=== PATIENT | female | born 1960 | race Caucasian/White ===

== ENCOUNTER 2019-12-28 08:42 | Emergency (ER) | payer BC, OTHER ==
[~2019-12-28] VITALS: Ht 165 cm; Wt 128.6 kg
[~2019-12-28 08:42] MED LIST: LOSA25TA5 PO; TRIAMTERENE
--- OUTSIDE RECORDS SUMMARY | 2019-12-28 08:48 | XMS REPORT ---
Author Author [employer] delinquency prevention social worker [employer] [facility] Infer [facility] [employer] Address [address] [address] Care Team Providers Care Professional Advisor Name Role Phone YASMINE FRANKLIN Sarah Unavailable MARIA ESTHER VERA Unavailable MARIA ESTHER VERA Unavailable MARIA ESTHER VERA Unavailable JOHN FORD Unavailable TIA OROZCO Unavailable Unavailable Unavailable Unavailable Unavailable Unavailable Allergies The data below is from unstructured sources Allergen Type Severity Reaction Status Last Updated No Known Drug Allergies Active 01/10/15 No Known Allergies Medications Medication Ingredient Drug Dose Dates Status Sig Sig Care Class(es) (Normalized) (Original) Provid er 200 actuat Albuterol beta2-Adren 2 07-10-20 Active take 2 P roAir HFA no albuterol Translation ergic puff(s 18 puff(s) by 108 (90 na me 0.09 s: [ ProAir Agonist ) inhalation Base) mg/actuat HFA 108 (90 every four MCG/ACT metered Base) hours as Inhalation dose MCG/ACT] needed every 4 hrs inhaler (1 2 puffs as source.) needed 4h Jun, 7 days Active predniSONE predniSONE no 20 mg 07-10-20 Active no Predn iSONE no 20 mg oral Translation information 18 information 20 mg O rally name tablet (1 s: [ Once a day 1 source.) PredniSONE tablet 24h 20 mg] Jun, 5 days Active Problems Problem Normalized Date Last Normalized Normalized Provider Fa cility Classification Problem(s) Recorded Problem Problem Sta tus Duration Other Body mass Chronic Active [facility] nutritional; index (BMI) [facility] [address] [facility] endocrine; and 40.0-44.9, of [place] metabolic adult [place] ([address]) disorders (1 Translations: source.) [ - BMI 40.0-44.9, adult Z68.41] Procedures Procedure Normalized Procedure Procedure Result Performer Facility Date 07-10-2018 Methylprednisolone no information no name [facility] injection [facility] ([id number]) 07-10-2018 Therapeutic no information no name [facility] prophylactic/dx [facility] subq/im [place] ([address]) Immunizations Normalized Immunization Date Notes Care Provider Facili ty Immunization SOLUMEDROL (UP TO 07-10-2018 no information JOHN FORD [facility] 125 MG) [address] [facility] (45729) Results Test Name Value Interpretation Reference Range Date Time Fa cility (Normalized) (Normalized) (Medline Reference) not yet categorized on 2019-09-27 Control Negative (no code) [facility] (18460) Exp date (no code) [facility] (22451) Lot # [id number] (no code) [facility] (99766) laboratory on 2018-09-22 Albumin 4.3 g/dL (N) 3.4 - 5.4 g/dL [facility] [Mass/Vol] [facility] (49646) Albumin/Globulin 1.4 {ratio} (N) 1 - 2.5 {ratio} [facility] [Mass ratio] [facility] (68906) ALP [Catalytic 80 U/L (N) 44 - 147 U/L [facility] activity/Vol] [facility] (21616) ALT [Catalytic 18 U/L (N) 4 - 40 U/L [facility] activity/Vol] [facility] (21621) AST [Catalytic 18 U/L (N) 10 - 34 U/L [facility] activity/Vol] [facility] (17788) Bilirubin 0.5 mg/dL (N) 0.1 - 1.2 mg/dL [facility] [Mass/Vol] [facility] (87546) Calcium 9.5 mg/dL (N) 8.5 - 10.2 mg/dL [facility] [Mass/Vol] [facility] (65688) Chloride 103 mmol/L (N) 95 - 106 mmol/L [facility] [Moles/Vol] [facility] (71759) CO2 [Moles/Vol] 29 mmol/L (N) 23 - 29 mmol/L [facility] (02977) Creatinine 0.80 mg/dL (N) [facility] h [Mass/Vol] [facility] (72752) GFR/1.73 sq M 94 (N) 90 - 120 [facility] predicted among mL/min/{1.73_m2} mL/min/{1.73_m2} [facility] f [facility] blacks MDRD [facility] (S/P/Bld) [Vol (16628) rate/Area] GFR/1.73 sq 81 (N) 90 - 120 [facility] th M.predicted MDRD mL/min/{1.73_m2} mL/min/{1.73_m2} [facility] (S/P/Bld) [Vol [facility] rate/Area] (41747) Globulin (S) 3.0 g/dL (N) 2 - 3.5 g/dL [facility] ealt [Mass/Vol] [facility] (70853) Glucose 86 mg/dL (N) 60 - 125 mg/dL [facility] [Mass/Vol] [facility] (83643) Potassium 3.8 mmol/L (N) 3.7 - 5.2 mmol/L [facility] [Moles/Vol] [facility] (05805) Protein 7.3 g/dL (N) 6.4 - 8.3 g/dL [facility] [Mass/Vol] [facility] (55360) Sodium 141 mmol/L (N) 135 - 145 mmol/L [facility] [Moles/Vol] [facility] (70362) Urea nitrogen 26 mg/dL (H) 7 - 20 mg/dL [facility] [Mass/Vol] [facility] (47447) Urea 33 mg/mg (H) 6 - 22 mg/mg [facility] nitrogen/Creatin [facility] ine [Mass ratio] [facility] (88477) other on 2016-11-12 Albumin/Globulin 1.5 {ratio} (no code) 1 - 2.5 {ratio} 7 Not Available [Mass ratio] 09: (27133) Erythrocyte 14.8 % (no code) 11.6 - 14.6 % 11-12-2016 Not Av ailable distribution 08:46 (67375) width (RBC) [Ratio] Globulin (S) 3.0 g/dL (no code) 2 - 3.5 g/dL 11-12-2016 Not Av ailable [Mass/Vol] 09: () Immature 0.0 10*3/uL (no code) 0 - 0.2 10*3/uL 11-12-2016 Not Available granulocytes 08: () (Bld) [#/Vol] Immature 0 % (no code) 0 - 0.5 % 11-12-2016 Not Availabl e granulocytes/100 08: () WBC (Bld) MCHC (RBC) 31.9 g/dL (no code) 32 - 36 g/dL 11-12-2016 Not Avai lable [Mass/Vol] 08: (55014) metabolic panel on 2016-11-12 Albumin 4.5 g/dL (no code) 3.4 - 5.4 g/dL 11-12-2016 Not Kristin ilable [Mass/Vol] 09: (14889) ALP [Catalytic 97 U/L (no code) 44 - 147 U/L 11-12-2016 Not Available activity/Vol] 09: (34823) ALT [Catalytic 23 U/L (no code) 4 - 40 U/L 11-12-2016 Not Av ailable activity/Vol] 09: (45283) AST [Catalytic 21 U/L (no code) 10 - 34 U/L 11-12-2016 Not A vailable activity/Vol] 09: (04891) Bilirubin 0.4 mg/dL (no code) 0.1 - 1.2 mg/dL 11-12-2016 Not Av ailable [Mass/Vol] 09: (34301) Calcium 9.8 mg/dL (no code) 8.5 - 10.2 mg/dL 11-12-2016 Not A vailable [Mass/Vol] 09: (76158) Chloride 100 mmol/L (no code) 95 - 106 mmol/L 11-12-2016 Not A vailable [Moles/Vol] 09: (09175) CO2 [Moles/Vol] 27 mmol/L (no code) 23 - 29 mmol/L 11-12-2016 N ot Available : (62596) Creatinine 0.71 mg/dL (no code) 11-12-2016 Not Available [Mass/Vol] 09: (24141) GFR/1.73 sq M 110 (no code) 90 - 120 11-12-2016 Not Avai lable predicted among mL/min/{1.73_m2} mL/min/{1.73_m2} 09: (17816) blacks MDRD (S/P/Bld) [Vol rate/Area] GFR/1.73 sq M 96 (no code) 90 - 120 11-12-2016 Not Avai lable predicted among mL/min/{1.73_m2} mL/min/{1.73_m2} 09: (25754) non-blacks MDRD (S/P/Bld) [Vol rate/Area] Glucose 84 mg/dL (no code) 60 - 125 mg/dL 11-12-2016 Not Kristin ilable [Mass/Vol] 09: (99107) HbA1c (Bld) 5.9 % (H) 0 - 5.7 % 11-12-2016 Not Availa ble [Mass fraction] 11: (02503) Potassium 4.4 mmol/L (no code) 3.7 - 5.2 mmol/L 11-12-2016 Not Available [Moles/Vol] 09: (11347) Protein 7.5 g/dL (no code) 6.4 - 8.3 g/dL 11-12-2016 Not Kristin ilable [Mass/Vol] 09: (90615) Sodium 143 mmol/L (no code) 135 - 145 mmol/L 11-12-2016 Not Available [Moles/Vol] 09: (89667) Urea nitrogen 14 mg/dL (no code) 7 - 20 mg/dL 11-12-2016 Not A vailable [Mass/Vol] 09: (22706) Urea 20 mg/mg (no code) 6 - 22 mg/mg 11-12-2016 Not Avail able nitrogen/Creatin 09: (33798) ine [Mass ratio] hematology on 2016-11-12 Basophils (Bld) 0.0 10*3/uL (no code) 0 - 0.3 10*3/uL 11-12-2016 Not Available [#/Vol] 08:46-0400 (33712) Basophils/100 1 % (no code) 0.5 - 1 % 11-12-2016 Not Avai lable WBC (Bld) 08:460400 (22470) Eosinophils 0.3 10*3/uL (no code) 0.05 - 0.5 11-12-2016 Not Kristin ilable (Bld) [#/Vol] 10*3/uL 08:460400 (97811) Eosinophils/100 6 % (no code) 1 - 4 % 11-12-2016 Not Av ailable WBC (Bld) 08:460400 (95302) Hematocrit (Bld) 44.5 % (no code) 36.1 - 50.3 % 11-12-2016 N ot Available [Volume 08:460400 (36751) fraction] Hemoglobin (Bld) 14.2 g/dL (no code) 12.1 - 17.2 g/dL 11-12-2016 Not Available [Mass/Vol] 08:460400 (58274) Lymphocytes 1.3 10*3/uL (no code) 0.9 - 2.9 11-12-2016 Not Avai lable (Bld) [#/Vol] 10*3/uL 08:46-0400 (69536) Lymphocytes/100 25 % (no code) 20 - 40 % 11-12-2016 Not Av ailable WBC (Bld) 08:460400 (44525) MCH (RBC) 29.8 pg (no code) 27 - 31 pg 11-12-2016 Not Availab le [Entitic mass] 08:460400 (28271) MCV (RBC) 93 fL (no code) 80 - 100 fL 11-12-2016 Not Availa ble [Entitic vol] 08:46-0400 (32866) Monocytes (Bld) 0.5 10*3/uL (no code) 0.3 - 0.9 11-12-2016 Not Available [#/Vol] 10*3/uL 08:46-0400 (89303) Monocytes/100 11 % (no code) 2 - 8 % 11-12-2016 Not Avai lable WBC (Bld) 08:46-0400 (93954) Neutrophils 2.9 10*3/uL (no code) 1.7 - 7 10*3/uL 11-12-2016 No t Available (Bld) [#/Vol] 08:46-0400 (46397) Neutrophils/100 57 % (no code) 40 - 60 % 11-12-2016 Not Av ailable WBC (Bld) 08:46-0400 (34722) Platelets (Bld) 339 10*3/uL (no code) 150 - 450 11-12-2016 Not Available [#/Vol] 10*3/uL 08:46-0400 (02583) RBC (Bld) 4.77 10*6/uL (no code) 4.2 - 6.1 11-12-2016 Not Avail able [#/Vol] 10*6/uL 08:46-0400 (08028) WBC (Bld) 5.0 10*3/uL (no code) 3.5 - 10.5 11-12-2016 Not Avail able [#/Vol] 10*3/uL 08:46-0400 (99475) Vital Signs Vital Sign Value Interpretation Reference Date Time Care Prov ider Facility (Normalized) (Normalized) Range BMI (Body Mass 44.43 kg/m2 (no code) 15 - 25 kg/m2 [facility] 09:00-[address] ([address]) Body 98.6 [degF] (no code) 97.8 - 99.0 07-10-2018 [facility] Temperature [degF] 09:00-[address] ([address]) Height 165.1 cm (no code) cm 07-10-2018 [facility] it 09:00-[address] ([address]) Pulse Oximetry 96 % (no code) 95 - 100 % 07-10-2018 [facility] 09:00-[address] ([address]) Weight 121.11 kg (no code) kg 07-10-2018 [facility]on 09:00-[address] ([address]) Interventions No Information Plan of Treatment Normalized Care Care Detail Care Activity Date Care Provider F acility Activity (ESTAB) Establish [facility] 08-12-[address] ([address]) Goals No Information Social History No Information Functional Status The data below is from unstructured sourcesNo functional status results. Mental Status No Information Encounters Encounter Normalized Encounter Encounter Diagnosis Care Provi fabiana Organization Date Type 07-10-2018 (WALK-IN) [facility]In [facility] Body mass index (BMI) [facility] 40.0-44.9, adult phone) CARE (no phone) 12-18-2017 Patient encounter no information no name no or ganization name 11-23-2017 Patient encounter no information no name no or ganization name 09-27-2019 Patient encounter no information (no phone) [facility] (no phone) 06-09-2019 Patient encounter no information no name no or ganization name procedure 03-25-2019 Patient encounter no information no name no or ganization name procedure 09-24-2018 Patient encounter no information no name no or ganization name procedure 09-22-2018 Patient encounter no information no name no or ganization name procedure 09-22-2018 Patient encounter no information no name no or ganization name procedure 08-12-2018 Patient encounter no information no name no or ganization name procedure 07-19-2018 Patient encounter no information no name no or ganization name procedure 07-10-2018 Patient encounter no information no name no or ganization name procedure 01-10-2015 Patient encounter no information no name no or ganization name procedure Medical Equipment No Information Payers No Information Advance Directives Directive Response Recor ded Date/Time Advance Directives No 12:20pm Health Care Power of Director Of Nuclear Medicine No 01/10/15 12:20pm Organ Donor No 01/10/15 12:20pm Resuscitation Status Full Code 01/10/15 12:20pm Discharge Instructions No hospital discharge instructions. Additional Source Comments This clinical document has been generated using [employer] software that has been certified by the Office of the National Coordinator for Health Information Technology (ONC 15.99.04.3023.Diam.31.00.0.514385) and the National Committee for [employer] (NCQA, as an eMeasure certified technology). FOR RECORDS PERTAINING TO PATIENTS WHO ARE OR HAVE BEEN ENROLLED IN A CHEMICAL D EPENDENCY/SUBSTANCE ABUSE PROGRAM, SOME INFORMATION MAY BE OMITTED. This clinica l summary was aggregated from multiple sources. Caution should be exercised in using it in the provision of clinical care. This summary normalizes information from multiple sources, and as a consequence, information in this document may ma terially change the coding, format and clinical context of patient data. In belkis tion, data may be omitted in some cases. CLINICAL DECISIONS SHOULD BE BASED ON T HE PRIMARY CLINICAL RECORDS. [employer] provides no warranty or guara ntee of the accuracy or completeness of information in this document.The followi ng information is based on time limited clinical information UNRECOGNIZED CONTENT PROVIDED BELOW FOR UNRECOGNIZED SECTION MEDICAL (GENERAL) HISTORY Type Description Date Medical History asthma Medical History hypertension Surgical History dilatation and curettage 2006 Surgical History colonoscopy 2016 Hospitalization History childbirth only UNRECOGNIZED CONTENT PROVIDED BELOW FOR UNRECOGNIZED SECTION REASON FOR VISIT Cough, fatigue started 3-4 weeks ago Kit
--- OUTSIDE RECORDS SUMMARY | 2019-12-28 08:48 | XMS REPORT ---
Author Author CHUYMyrna Organization [facility] Address [address] [place] [address] Care Team Providers Care Fiberline Supervisor Name Role Phone MARIA ESTHER VERA Unavailable PROBLEMS Type Condition ICD9-CM Code [id number] Code Onset Dates Condition S tatus SNOMED Code Problem Essential hypertension I10 Active 52407786 Problem Morbid obesity due to excess calories E66.01 Active 190574310 Problem Mild intermittent asthma without complication J45. 20 Active 067536893 Problem Hypercholesteremia E78.00 Active 1 6361379 ALLERGIES No Information ENCOUNTERS Encounter Location Date Diagnosis [place] [address] [facility] [id number] [address] [place] [phone] Mar, [facility] [address] [facility] [id number] [address] [place] [phone] November, [place] [address] [facility] [id number] [address] [place] [address] Oct, Essential hypertension I10 ; Mild intermittent asthma without complication J45.20 and Morbid obesity due to excess calories E66.01 [place] [address] [facility] [id number] [address] [place] [phone] Apr, Essential hypertension I10 ; Mild intermittent asthma without complication J45.20 and Morbid obesity due to excess calories E66.01 [facility] [address] [facility] [id number] [address] [place] [phone] Feb, Essential hypertension I10 ; Mild intermittent asthma without complication J45.20 and Morbid obesity due to excess calories E66.01 [place] [address] [id number] [address] [place] [address] Oct, Mild intermittent asthma wit hout complication J45.20 ; Essential hypertension I10 ; Morbid obesity due to excess calories E66.01 ; Family history of heart disease Z82.49 and Fluttering sensation of heart R00.2 [facility] [address] [facility] [id number] [address] [place] [address] 14 Oct, 2016 Routine adult health mainten ance Z00.00 ; Mild intermittent asthma without complication J45.20 ; Essential hypertension I10 ; Morbid obesity due to excess calories E66.01 ; Family history of heart disease Z82.49 and Fluttering sensation of heart R00.2 [facility] [address] [facility] [id number] [address] [place] [phone] Oct, IMMUNIZATIONS No Known Immunizations SOCIAL HISTORY Never Assessed REASON FOR VISIT Eye Exam PLAN OF CARE VITAL SIGNS MEDICATIONS Unknown Medications RESULTS No Results PROCEDURES No Known procedures INSTRUCTIONS MEDICATIONS ADMINISTERED No Known Medications MEDICAL (GENERAL) HISTORY Type Description Date Medical History asthma Medical History hypertension Surgical History dilatation and curettage 2006 Surgical History colonoscopy 2016 Hospitalization History childbirth only
--- OUTSIDE RECORDS SUMMARY | 2019-12-28 08:48 | XMS REPORT ---
Author Author CHUYMyrna Organization [facility] Address [address] [place] [address] Care Team Providers Care Geophysical Prospector Name Role Phone MARIA ESTHER VERA Unavailable PROBLEMS Type Condition ICD9-CM Code [id number] Code Onset Dates Condition S tatus SNOMED Code Problem Essential hypertension I10 Active 92697634 Problem Morbid obesity due to excess calories E66.01 Active 041677894 Problem Mild intermittent asthma without complication J45. 20 Active 684743710 Problem Hypercholesteremia E78.00 Active 1 1180340 ALLERGIES No Known Allergies ENCOUNTERS Encounter Location Date Diagnosis [place] [address] [address] November, [place] [address] [address] Oct, Essential hypertension I10 ; Mild intermittent asthma without complication J45.20 and Morbid obesity due to excess calories E66.01 [place] [address] [address] [place] [id number] [place] [phone] Apr, Essential hypertension I10 ; Mild intermittent asthma without complication J45.20 and Morbid obesity due to excess calories E66.01 [place] [address] [address] [place] [id number] [place] [address] Feb, Essential hypertension I10 ; Mild intermittent asthma without complication J45.20 and Morbid obesity due to excess calories E66.01 [place] [address] [address] [place] [id number] [place] [phone] Oct, Mild intermittent asthma wit hout complication J45.20 ; Essential hypertension I10 ; Morbid obesity due to excess calories E66.01 ; Family history of heart disease Z82.49 and Fluttering sensation of heart R00.2 [place] [address] [facility] [id number] [place] [address] 14 Oct, 2016 Routine adult health mainten ance Z00.00 ; Mild intermittent asthma without complication J45.20 ; Essential hypertension I10 ; Morbid obesity due to excess calories E66.01 ; Family history of heart disease Z82.49 and Fluttering sensation of heart R00.2 [facility] [address] [facility] [id number] [place] [address] 06 Oct, 2016 IMMUNIZATIONS No Known Immunizations SOCIAL HISTORY Never Assessed REASON FOR VISIT Weight management/bP---GONZALO Douglass PLAN OF CARE Activity Details Follow Up 3 Months Reason:CHM/HTN VITAL SIGNS Height 5'5" in 2017-05-07 Weight 249.7 lbs 2017-05-07 Temperature 97.7 degrees Fahrenheit 2017-05-07 Heart Rate 80 bpm 2017-05-07 Respiratory Rate 20 2017-05-07 BMI 41.55 kg/m2 2017-05-07 Blood pressure systolic 147 mmHg 2017-05-07 Blood pressure diastolic 96 mmHg 2017-05-07 MEDICATIONS Medication Instructions Dosage Frequency Start Date End Date Duration S tatus Montelukast Sodium 10 mg Orally Once a day 1 tablet in the evening 24h 90 days Active Albuterol Sulfate HFA 108 (90 Base) MCG/ACT Inhalation every 4 hrs 2 puffs as needed 4h Active Multivitamin Active Losartan Potassium 25 MG Orally Once a day 1 tablet 24h 90 days Active Triamterene-HCTZ 37.5-25 MG by oral route Once a day 1 tablet 24h 6 Months Active RESULTS No Results PROCEDURES No Known procedures INSTRUCTIONS MEDICATIONS ADMINISTERED No Known Medications MEDICAL (GENERAL) HISTORY Type Description Date Medical History asthma Medical History hypertension Surgical History dilatation and curettage 2006 Surgical History colonoscopy 2016 Hospitalization History childbirth only
--- OUTSIDE RECORDS SUMMARY | 2019-12-28 08:48 | XMS REPORT ---
Author Author CHUYMyrna MARIA ESTHER Organization [facility] Address [address] [place] [address] Care Team Providers Care Dietary Clerk Name Role Phone MARIA ESTHER VERA Unavailable PROBLEMS Type Condition ICD9-CM Code VUU42-SM Code Onset Dates Condition S tatus SNOMED Code Problem Essential hypertension I10 Active 15896466 Problem Morbid obesity due to excess calories E66.01 Active 990996025 Problem Mild intermittent asthma without complication J45. 20 Active 364677819 Problem Hypercholesteremia E78.00 Active 1 5285698 ALLERGIES No Known Allergies ENCOUNTERS Encounter Location Date Diagnosis [place] [address] [address] November, [place] [address] [address] Oct, Essential hypertension I10 ; Mild intermittent asthma without complication J45.20 and Morbid obesity due to excess calories E66.01 [place] [address] [address] [place] [id number] [place] [address] Apr, Essential hypertension I10 ; Mild intermittent asthma without complication J45.20 and Morbid obesity due to excess calories E66.01 [place] [address] [place] [id number] [place] [address] Feb, Essential hypertension I10 ; Mild intermittent asthma without complication J45.20 and Morbid obesity due to excess calories E66.01 [place] [address] [place] [id number] [place] [address] Oct, Mild intermittent asthma wit hout complication J45.20 ; Essential hypertension I10 ; Morbid obesity due to excess calories E66.01 ; Family history of heart disease Z82.49 and Fluttering sensation of heart R00.2 [place] [address] [facility] [id number] [place] [address] 14 Oct, 2016 Routine adult health mainten ance Z00.00 ; Mild intermittent asthma without complication J45.20 ; Essential hypertension I10 ; Morbid obesity due to excess calories E66.01 ; Family history of heart disease Z82.49 and Fluttering sensation of heart R00.2 [facility] [address] [facility] [id number] [place] [address] 06 Oct, 2016 IMMUNIZATIONS No Known Immunizations SOCIAL HISTORY Never Assessed REASON FOR VISIT HTN--tcuppettRN PLAN OF CARE Activity Details Follow Up 3 Months Reason:CHM/HTN VITAL SIGNS Height 5'5" in 2017-11-23 Weight 254.2 lbs 2017-11-23 Temperature 97.8 degrees Fahrenheit 2017-11-23 Heart Rate 84 bpm 2017-11-23 Respiratory Rate 20 2017-11-23 BMI 42.30 kg/m2 2017-11-23 Blood pressure systolic 156 mmHg 2017-11-23 Blood pressure diastolic 100 mmHg 2017-11-23 MEDICATIONS Medication Instructions Dosage Frequency Start Date End Date Duration S tatus Albuterol Sulfate HFA 108 (90 Base) MCG/ACT Inhalation every 4 hrs 2 puffs as needed 4h Active Losartan Potassium 25 MG Orally Once a day 1 tablet 24h 90 days Active Multivitamin Active Triamterene-HCTZ 37.5-25 MG by oral route Once a day 1 tablet 24h 90 days Active Montelukast Sodium 10 mg Orally Once a day TAKE (1) TABLET BY MOUTH ONCE EVERY EVENING 24h 90 days Active RESULTS No Results PROCEDURES Procedure Date Ordered Result Body Site COMPLETE CBC W/AUTO DIFF WBC November 23, 2017 ASSAY THYROID STIM HORMONE November 23, 2017 COMPREHEN METABOLIC PANEL November 23, 2017 LIPID PANEL November 23, 2017 INSTRUCTIONS MEDICATIONS ADMINISTERED No Known Medications MEDICAL (GENERAL) HISTORY Type Description Date Medical History asthma Medical History hypertension Surgical History dilatation and curettage 2006 Surgical History colonoscopy 2016 Hospitalization History childbirth only
--- OUTSIDE RECORDS SUMMARY | 2019-12-28 08:48 | XMS REPORT ---
Author Author LILIANA Myrna JOHN Organization [facility] Address [address] [place] [address] Care Team Providers Care Digital Music Instructor Name Role Phone JOHN FORD Unavailable PROBLEMS Type Condition ICD9-CM Code SPH04-NR Code Onset Dates Condition S tatus SNOMED Code Problem Moderate asthma with acute exacerbation, unspecified whether persistent J45.901 Active 464138980 Problem Essential hypertension I10 Active 39149552 Problem Hypercholesteremia E78.00 Active 1 5715153 Problem Morbid obesity due to excess calories E66.01 Active 526766445 Problem Mild intermittent asthma without complication J45. 20 Active [id number] ALLERGIES No Known Allergies ENCOUNTERS Encounter Location Date Diagnosis [place] [id number] [place] [id number] [place] [phone] Jul, [facility] [address] [phone] Jun, BMI 40.0-44.9, adult Z68.41 ; Moderate asthma with acute exacerbation, unspecified whether persistent J45.901 and Essential hypertension I10 [place] [address] [place] [id number] [place] [phone] November, [place] [address] [phone] Oct, Essential hypertension I10 ; Mild intermittent asthma without complication J45.20 and Morbid obesity due to excess calories E66.01 [place] [address] [phone] Apr, Essential hypertension I10 ; Mild intermittent asthma without complication J45.20 and Morbid obesity due to excess calories E66.01 [place] [address] [place] [id number] [place] [phone] Feb, Essential hypertension I10 ; Mild intermittent asthma without complication J45.20 and Morbid obesity due to excess calories E66.01 [place] [address] [facility] [id number] [address] [place] [phone] 18 Oct, 2016 Mild intermittent asthma wit hout complication J45.20 ; Essential hypertension I10 ; Morbid obesity due to excess calories E66.01 ; Family history of heart disease Z82.49 and Fluttering sensation of heart R00.2 [place] [address] [facility] [id number] [address] [place] [phone] 14 Oct, 2016 Routine adult health mainten ance Z00.00 ; Mild intermittent asthma without complication J45.20 ; Essential hypertension I10 ; Morbid obesity due to excess calories E66.01 ; Family history of heart disease Z82.49 and Fluttering sensation of heart R00.[address] [id number] [address] [place] [phone] 06 Oct, 2016 IMMUNIZATIONS Vaccine Route Administration Date Status SOLUMEDROL (UP TO 125 MG) IM Intramuscular Jul 10, 2018 Admin istered SOCIAL HISTORY Never Assessed REASON FOR VISIT Cough, fatigue started 3-4 weeks ago JStrasserRN PLAN OF CARE Activity Details Follow Up as needed or reg fu with danita zarco Reason: VITAL SIGNS Height 65 in 2018-07-10 Weight 267.0 lbs 2018-07-10 Temperature 98.6 degrees Fahrenheit 2018-07-10 Heart Rate 90 bpm 2018-07-10 Respiratory Rate 20 2018-07-10 Oximetry 96 % 2018-07-10 BMI 44.43 kg/m2 2018-07-10 Blood pressure systolic 140 mmHg 2018-07-10 Blood pressure diastolic 100 mmHg 2018-07-10 MEDICATIONS Medication Instructions Dosage Frequency Start Date End Date Duration S tatus Albuterol Sulfate HFA 108 (90 Base) MCG/ACT Inhalation every 4 hrs 2 puffs as needed 4h Active Multivitamin Active Montelukast Sodium 10 mg Orally Once a day TAKE (1) TABLET BY MOUTH ONCE EVERY EVENING 24h 90 days Active Losartan Potassium 25 MG Orally Once a day 1 tablet 24h 90 days Active Triamterene-HCTZ 37.5-25 MG by oral route Once a day 1 tablet 24h 32 days Active ProAir HFA 108 (90 Base) MCG/ACT Inhalation every 4 hrs 2 puffs as needed 4h Jun, 7 days Active PredniSONE 20 mg Orally Once a day 1 tablet 24h Jun, 5 days Active RESULTS No Results PROCEDURES Procedure Date Ordered Result Body Site SOLUMEDROL (UP TO 125 MG) Jul 10, 2018 THER/PROPH/DIAG INJ, SC/IM Jul 10, 2018 INSTRUCTIONS MEDICATIONS ADMINISTERED No Known Medications MEDICAL (GENERAL) HISTORY Type Description Date Medical History asthma Medical History hypertension Surgical History dilatation and curettage 2006 Surgical History colonoscopy 2016 Hospitalization History childbirth only
--- OUTSIDE RECORDS SUMMARY | 2019-12-28 08:48 | XMS REPORT | Continuity of Care Document ---
Author Organization Unknown Address Unknown Phone Unavailable Allergies Active Description Code Type Severity Reaction Onset Reported/Identified Relationship to Patient Clinical Status Yes No Known Drug Allergies [id number] Drug Allergy Unknown N/A 01/10/2015 Medications There is no data. Problems Date Dx Coded Attending Type Code Diagnosis Diagnosed By 07/26/2014 RIGOBERTO BIRD, YASMINE Smith Ot 246.2 12/20/2014 RIGOBERTO BIRD, YASMINE Smith Ot 246.2 01/10/2015 CÉSAR BIRD, LEXUS Menezes Ot 401.9 01/10/2015 CÉSAR BIRD, LEXUS Menezes Ot 493.90 01/10/2015 CÉSAR BIRD, LEXUS Menezes Ot V76.51 01/29/2015 RIGOBERTO BIRD, YASMINE Smith Ot V76.12 Procedures There is no data. Results Test Result Range CBC With Differential/Platelet - 7 08:25 WBC 5.0 x10E3/uL 3.4-10.8 RBC 4.77 x10E6/uL 3.77-5.28 Hemoglobin 14.2 g/dL 11.1-15.9 Hematocrit 44.5 % 34.0-46.6 MCV 93 fL 79-97 MCH 29.8 pg 26.6-33.0 MCHC 31.9 g/dL 31.5-35.7 RDW 14.8 % 12.3-15.4 Platelets 339 x10E3/uL 150-379 Neutrophils 57 % Lymphs 25 % Monocytes 11 % Eos 6 % Basos 1 % Neutrophils (Absolute) 2.9 x10E3/uL 1.4- 7.0 Lymphs (Absolute) 1.3 x10E3/uL 0.7-3.1 Monocytes(Absolute) 0.5 x10E3/uL 0.1-0.9 Eos (Absolute) 0.3 x10E3/uL 0.0-0.4 Baso (Absolute) 0.0 x10E3/uL 0.0-0.2 Immature Granulocytes 0 % Immature Grans (Abs) 0.0 x10E3/uL 0.0-0. 1 Comp. Metabolic Panel (14) - 11/11/16 08 :25 Glucose, Serum 84 mg/dL 65-99 BUN 14 mg/dL 6-24 Creatinine, Serum 0.71 mg/dL 0.57-1.00 eGFR If NonAfricn Am 96 mL/min/1.73 >59 eGFR If Africn Am 110 mL/min/1.73 >5 9 BUN/Creatinine Ratio 20 9-23 Sodium, Serum 143 mmol/L 134-144 Potassium, Serum 4.4 mmol/L 3.5-5.2 Chloride, Serum 100 mmol/L 96-106 Carbon Dioxide, Total 27 mmol/L 18-29 Calcium, Serum 9.8 mg/dL 8.7-10.2 Protein, Total, Serum 7.5 g/dL 6.0-8.5 Albumin, Serum 4.5 g/dL 3.5-5.5 Globulin, Total 3.0 g/dL 1.5-4.5 A/G Ratio 1.5 1.2-2.2 Bilirubin, Total 0.4 mg/dL 0.0-1.2 Alkaline Phosphatase, S 97 IU/L 39-117 AST (SGOT) 21 IU/L 0-40 ALT (SGPT) 23 IU/L 0-32 Hemoglobin A1c - 11/11/16 08:25 Hemoglobin A1c 5.9 % 4.8-5.6 CMP - 09/22/18 11:43 GLUCOSE 86 mg/dL 65-99 UREA NITROGEN (BUN) 26 mg/dL 7-25 CREATININE 0.80 mg/dL 0.50-1.05 eGFR NON-AFR. EGYPTIAN 81 mL/min/1.73m2 > OR = 60 eGFR 94 mL/min/1.73m2 > OR = 60 BUN/CREATININE RATIO 33 (calc) 6-22 SODIUM 141 mmol/L 135-146 POTASSIUM 3.8 mmol/L 3.5-5.3 CHLORIDE 103 mmol/L 98-110 CARBON DIOXIDE 29 mmol/L 20-32 CALCIUM 9.5 mg/dL 8.6-10.4 PROTEIN, TOTAL 7.3 g/dL 6.1-8.1 ALBUMIN 4.3 g/dL 3.6-5.1 GLOBULIN 3.0 g/dL (calc) 1.9-3.7 ALBUMIN/GLOBULIN RATIO 1.4 (calc) 1.0-2. 5 BILIRUBIN, TOTAL 0.5 mg/dL 0.2-1.2 ALKALINE PHOSPHATASE 80 U/L 33-130 AST 18 U/L 10-35 ALT 18 U/L 6-29 Encounters ACCT No. Visit Date/Time Discharge Status Pt. Type Provider Facility Loc./Unit Complaint [id number] 06/09/2019 13:40:00 06/09/2019 23:59:5 9 CLS Outpatient TIA OROZCO [facility] [id number] 09/22/2018 10:40:00 Document Registration [id number] 01/10/2015 12:16:00 015 15:35:00 DIS Outpatient LEXUS LINDSEY MD Via [facility] [id number] 01/04/2015 06:18:00 015 23:59:59 CLS Outpatient LEXUS LINDSEY MD Via [facility] PREOP [id number] 12/21/2014 15:18:00 015 23:59:59 CLS Outpatient YASMINE FRANKLIN MD Via [facility] RAD [id number] 06/29/2014 15:11:00 014 23:59:59 CLS Outpatient YASMINE FRANKLIN MD Via [facility] RAD [id number] 11/12/2016 11:10:00 Document Registration
[2019-12-28] MEDS ORDERED: TRIA1TAB3 (09:12)
[2019-12-28] MEDS ORDERED: LOSA50TA63 (09:12)
[2019-12-28] MEDS ORDERED: MONT10TA26 (09:12)
[2019-12-28 09:16] LABS: BASOPHILS % (AUTO) 0 % (0-10); BILIRUBIN,URINE NEGATIVE (NEGATIVE); CLARITY,URINE CLEAR; COLOR,URINE YELLOW; EOSINOPHILS # (AUTO) 0.3 10^3/uL (0.0-0.3); EOSINOPHILS % (AUTO) 4 % (0-10); GLUCOSE, URINE (UA) NEGATIVE (NEGATIVE); HEMATOCRIT 38 % (35-52); HEMOGLOBIN 12.3 G/DL (11.5-16.0); KETONES,URINE NEGATIVE (NEGATIVE); LEUKOCYTE ESTERASE ,URINE 3+ (NEGATIVE); LYMPHOCYTES # (AUTO) 1.2 X 10^3 (1.0-4.0); LYMPHOCYTES % (AUTO) 16 % (12-44); MEAN CORPUSCULAR HEMOGLOBIN 31 PG (25-34); MEAN CORPUSCULAR HGB CONC 33 G/DL (32-36); MEAN CORPUSCULAR VOLUME 94 FL (80-99); MONOCYTES # (AUTO) 0.6 X 10^3 (0.0-1.0); MONOCYTES % (AUTO) 9 % (0-12); NEUTROPHILS # (AUTO) 5.2 X 10^3 (1.8-7.8); NEUTROPHILS % (AUTO) 70 % (42-75); NITRITE,URINE NEGATIVE (NEGATIVE); PH,URINE 6.5 (5-9); PLATELET COUNT 380 10^3/uL (130-400); PROTEIN,URINE NEGATIVE (NEGATIVE); RED CELL DISTRIBUTION WIDTH 14.1 % (10.0-14.5); WHITE BLOOD COUNT 7.3 10^3/uL (4.3-11.0)
[2019-12-28 09:28] LABS: ALBUMIN 4.2 GM/DL (3.2-4.5); CHLORIDE 103 MMOL/L (98-107); POTASSIUM 3.9 MMOL/L (3.6-5.0); SODIUM 140 MMOL/L (135-145)
[2019-12-28 09:29] LABS: BACTERIA,URINE FEW /HPF; CALCIUM 9.5 MG/DL (8.5-10.1)
[2019-12-28 09:30] LABS: GLUCOSE 101 MG/DL (70-105); TOTAL PROTEIN 7.7 GM/DL (6.4-8.2)
[2019-12-28 09:31] LABS: CARBON DIOXIDE 26 MMOL/L (21-32)
[2019-12-28 09:32] LABS: BILIRUBIN,TOTAL 0.4 MG/DL (0.1-1.0)
[2019-12-28 09:34] LABS: ALKALINE PHOSPHATASE 92 U/L (40-136); CREATININE SERUM 0.88 MG/DL (0.60-1.30); GFR ESTIMATED > 60
--- NOTE | 2019-12-28 09:34 | ED Abdominal Pain ---
General Chief Complaint: Abdominal/GI Problems Stated Complaint: UPPER LEFT ABD PAIN Nursing Triage Note: ARRIVED VIA AMB TO ROOM 07 WITH COMPLAINTS OF RIGHT UPPER ABD PAIN OFF AND ON FOR OVER A YEAR. PT COMPLAINS OF N/V/D ALONG WITH IT NOW. Sepsis Screen: No Definite Risk Source of Information: Patient Exam Limitations: No Limitations History of Present Illness Date Seen by Provider: Dec 28, 2019 Time Seen by Provider: 08:58 Initial Comments Here with complaint of right upper quadrant pain that has been on and off over the last year but worse recently. Did have some nausea and vomiting last night with reflux after eating a small meal. States the pain radiates from the right side to her back. Denies fever or chills. Does seem to be associated with food. Has had loose stools or diarrhea more common recently. Timing/Duration: 1 Week, Getting Worse Severity/Quality: Moderate, Aching Location: RUQ Radiation: Back Activities at Onset: None Modifying Factors: Worsens With Eating Associated Symptoms: Back Pain; No Chest Pain, No Fever/Chills; Nausea/Vomiting; No Shortness of Air, No Weakness Allergies and Home Medications Allergies Coded Allergies: No Known Drug Allergies (Unverified , 01/10/15) Home Medications Losartan Potassium 25 Mg Tablet, 25 MG PO DAILY, (Reported) [Triamterane] , 37.5 DAILY Prescribed by: BJ BRITO on 01/04/15 1319 Patient Home Medication List Home Medication List Reviewed: Yes Review of Systems Review of Systems Constitutional: see HPI; No chills, No fever EENTM: No Symptoms Reported Respiratory: No Symptoms Reported Cardiovascular: No Symptoms Reported Gastrointestinal: See HPI Genitourinary: No Symptoms Reported Musculoskeletal: see HPI; No joint pain, No muscle pain Skin: no symptoms reported Psychiatric/Neurological: No Symptoms Reported All Other Systems Reviewed Negative Unless Noted: Yes Past Ggyryvp-Fzrceq-Vuwilp Hx Past Med/Social Hx: Reviewed Nursing Past Med/Soc Hx Patient Social History Alcohol Use: Denies Use Recreational Drug Use: No Smoking Status: Never a Smoker Recent Foreign Travel: No Contact w/Someone Who Travel: No Recent Infectious Disease Expo: No Past Medical History Surgeries: Yes (D&C) Respiratory: Yes Asthma Cardiac: Yes Hypertension Gastrointestinal: No Musculoskeletal: No Endocrine: No HEENT: No Cancer: No Psychosocial: No Family Medical History Reviewed Nursing Family Hx Other Conditions/Hx (gallbladder disease) Physical Exam Vital Signs Vital Signs - First Documented 12/28/19 08:45 Temp 36.8 Pulse 72 Resp 16 B/P (MAP) 178/115 (136) Pulse Ox 98 O2 Delivery Room Air Capillary Refill : Less Than 3 Seconds Height/Weight/BMI Height: 5'5.00" Weight: 250lbs. oz. 113.060056og; 47.00 BMI Method: General Appearance: WD/WN, no apparent distress, obese HEENT: PERRL/EOMI, pharynx normal Neck: full range of motion, supple Respiratory: lungs clear, normal breath sounds Cardiovascular: regular rate, rhythm, no murmur Gastrointestinal: soft; No distended, No guarding, No rebound; tenderness (right upper quadrant, epigastric and to a lesser extent left upper quadrant) Extremities: non-tender, normal inspection Back: normal inspection, no CVA tenderness, no vertebral tenderness Neurologic/Psychiatric: alert, oriented x 3 Skin: normal color, warm/dry Progress/Results/Core Measures Results/Orders Lab Results Laboratory Tests Test 12/28/19 09:05 Range/Units White Blood Count 7.3 4.3-11.0 10^3/uL Red Blood Count 4.02 L 4.35-5.85 10^6/uL Hemoglobin 12.3 11.5-16.0 G/DL Hematocrit 38 35-52 % Mean Corpuscular Volume 94 80-99 FL Mean Corpuscular Hemoglobin 31 25-34 PG Mean Corpuscular Hemoglobin Concent 33 32-36 G/DL Red Cell Distribution Width 14.1 10.0-14.5 % Platelet Count 380 130-400 10^3/uL Mean Platelet Volume 10.0 7.4-10.4 FL Neutrophils (%) (Auto) 70 42-75 % Lymphocytes (%) (Auto) 16 12-44 % Monocytes (%) (Auto) 9 0-12 % Eosinophils (%) (Auto) 4 0-10 % Basophils (%) (Auto) 0 0-10 % Neutrophils # (Auto) 5.2 1.8-7.8 X 10^3 Lymphocytes # (Auto) 1.2 1.0-4.0 X 10^3 Monocytes # (Auto) 0.6 0.0-1.0 X 10^3 Eosinophils # (Auto) 0.3 0.0-0.3 10^3/uL Basophils # (Auto) 0.0 0.0-0.1 10^3/uL Urine Color YELLOW Urine Clarity CLEAR Urine pH 6.5 5-9 Urine Specific Usk 1.020 1.016-1.022 Urine Protein NEGATIVE NEGATIVE Urine Glucose (UA) NEGATIVE NEGATIVE Urine Ketones NEGATIVE NEGATIVE Urine Nitrite NEGATIVE NEGATIVE Urine Bilirubin NEGATIVE NEGATIVE Urine Urobilinogen 0.2 < = 1.0 MG/DL Urine Leukocyte Esterase 3+ H NEGATIVE Urine RBC (Auto) NEGATIVE NEGATIVE Urine RBC NONE /HPF Urine WBC 2-5 /HPF Urine Squamous Epithelial Cells 5-10 /HPF Urine Crystals NONE /LPF Urine Bacteria FEW H /HPF Urine Casts NONE /LPF Urine Mucus NEGATIVE /LPF Urine Culture Indicated YES Sodium Level 140 135-145 MMOL/L Potassium Level 3.9 3.6-5.0 MMOL/L Chloride Level 103 98-107 MMOL/L Carbon Dioxide Level 26 21-32 MMOL/L Anion Gap 11 5-14 MMOL/L Blood Urea Nitrogen 20 H 7-18 MG/DL Creatinine 0.88 0.60-1.30 MG/DL Estimat Glomerular Filtration Rate > 60 BUN/Creatinine Ratio 23 Glucose Level 101 70-105 MG/DL Calcium Level 9.5 8.5-10.1 MG/DL Corrected Calcium 9.3 8.5-10.1 MG/DL Total Bilirubin 0.4 0.1-1.0 MG/DL Aspartate Amino Transf (AST/SGOT) 19 5-34 U/L Alanine Aminotransferase (ALT/SGPT) 17 0-55 U/L Alkaline Phosphatase 92 40-136 U/L C-Reactive Protein High Sensitivity 0.44 0.00-0.50 MG/DL Total Protein 7.7 6.4-8.2 GM/DL Albumin 4.2 3.2-4.5 GM/DL Lipase 9 8-78 U/L My Orders Orders - DEVENDRA KAHN MD Cbc With Automated Diff (12/28/19 09:04) Comprehensive Metabolic Panel (12/28/19 09:04) Hs C Reactive Protein (12/28/19 09:04) Lipase (12/28/19 09:04) Ua Culture If Indicated (12/28/19 09:04) Ed Iv/Invasive Line Start (12/28/19 09:04) Us Gallbladder [address]757 (12/28/19 09:04) Urine Culture (12/28/19 09:05) Famotidine Injection (Pepcid Injection) (12/28/19 10:10) Pantoprazole Injection (Protonix Injecti (12/28/19 10:15) Medications Given in ED Current Medications Medications Dose Ordered Sig/Concetta Route Start Time Stop Time Status Last Admin Dose Admin Pantoprazole 40 mg ONCE ONCE IV 12/28/19 10:15 12/28/19 10:16 DC 12/28/19 10:17 40 MG Vital Signs/I&O 12/28/19 08:45 Temp 36.8 Pulse 72 Resp 16 B/P (MAP) 178/115 (136) Pulse Ox 98 O2 Delivery Room Air Blood Pressure Mean: 136 Progress Progress Note : Progress Note Seen and evaluated. IV, labs and right upper quadrant ultrasound ordered. Monitor patient. 1018: Ultrasound complete and there are no gallstones. Common bile duct at 5 mm. Labs do not show any concerning findings. Protonix 40 mg IV and Pepcid 20 mg IV for reflux symptoms. Patient was experiencing fairly significant reflux when laying down for the ultrasound. A little better when sitting up. Given that there are no gallstones, this may either be slow gallbladder or ulcer disease or combination of both. I discussed the case with Dr. Lucas and he will see her in office tomorrow. We have called and made appointment and she will be there at 1 PM. Patient appreciative of the care and follow-up. Discharged home with return precautions. Patient verbalize understanding instructions and agreement with plan. Diagnostic Imaging Diagonstic Imaging: Ultrasound Plain Films/CT/US/NM/MRI: other (gallbladder) Comments No gallstones noted. Common bile duct 5 mm. No other significant findings per preliminary read. Pending final results. Departure Impression Primary Impression: Upper abdominal pain Additional Impression: Acid reflux disease Qualified Codes: K21.9 - Gastro-esophageal reflux disease without esophagitis Disposition: 01 HOME, SELF-CARE Condition: Improved Departure-Patient Inst. Decision time for Depature: 10:21 Referrals: YASMINE FRANKLIN MD (PCP) Primary Care Physician MARANDA LUCAS DO Patient Instructions: Acute Abdomen (Belly Pain), Adult (DC), Acid Reflux and Gastroesophageal Reflux Disease in Adults Add. Discharge Instructions: All discharge instructions reviewed with patient and/or family. Voiced understanding. Follow-up at Dr. Lucas's office at 1 PM tomorrow for recheck and further evaluation. You will fill out paperwork on arrival and then he will see you afterwards. Return for worse pain, fever, vomiting, weakness, breathing problems or other concerns as needed. Copy Copies To 1: MARANDA LUCAS TIMOTHY D MD Dec 28, 2019 09:34
[2019-12-28 09:35] LABS: BUN/CREATININE RATIO 23
[2019-12-28 09:37] LABS: ALANINE AMINOTRANSFERASE 17 U/L (0-55); LIPASE 9 U/L (8-78)
[2019-12-28] MEDS ORDERED: FAMOTIDINE 20MG/2ML IV (PEPCID) IV STA (10:10)
[2019-12-28] MEDS ORDERED: PANTOPRAZOLE 40 MG (PROTONIX) VIAL IV ONE (10:15)
[2019-12-28 10:27] VITALS: BP 166/92
--- NOTE | 2019-12-28 10:27 | Diagnostic Imaging Report ---
PROCEDURE: US Gallbladder. TECHNIQUE: Multiple real-time grayscale images were obtained over the right upper quadrant in various projections. INDICATION: Abdominal pain suspected FINDINGS: Grayscale imaging of the gallbladder reveals no intraluminal filling defect. There is no gallbladder wall thickening or pericholecystic fluid. No intra or extrahepatic biliary ductal dilatation is identified. Pancreas, abdominal aorta and inferior vena cava are largely obscured by overlying bowel gas and body habitus. No right renal abnormality or free fluid is seen. IMPRESSION: Unremarkable gallbladder ultrasound. Dictated by: Dictated on workstation # [id number]
== END 2019-12-28 10:27 | disposition home or self-care (01) ==
LOC: EDUNIT# 08:42 → ER 08:43
DX: K21.9 Gastro-esophageal reflux disease without esophagitis (principal); I10 Essential (primary) hypertension
CPT/HCPCS: 36415; 76705; 80053; 81000; 83690; 85025; 86141; 87088

== ENCOUNTER → 2020-01-03 | Outpatient (CLI) | payer BC ==
[~2020-01-03] MED LIST changes: +CATHETER FLUSH 10 ML SYR IV PRN; +LOSA50TA63 PO; +MONT10TA26 PO; +TRIA1TAB3 PO
--- NOTE | 2020-01-03 12:34 | Diagnostic Imaging Report ---
INDICATION: Epigastric pain. TECHNIQUE: The patient was administered 5.1 mCi of technetium 99m Choletec intravenously and imaging over the abdomen was performed. 8 ounces of Ensure was ingested at 1 hour into the exam. Note is made that the patient did vomit the majority of Ensure after ingestion. FINDINGS: There is homogeneous uptake of activity throughout the liver. Prompt excretion of activity into the common duct and gallbladder is noted. Normal passage of activity into the small bowel is seen. The gallbladder ejection fraction is low at 8%. IMPRESSION: 1. Patent cystic duct and common bile duct. 2. Low gallbladder ejection fraction of 8%. The patient did vomit the Ensure. Dictated by: Dictated on workstation # [id number]
== END ==
LOC: CARD 09:09
PROVIDERS: ATTEND Surgery
DX: R10.816 Epigastric abdominal tenderness (principal)
CPT/HCPCS: 78227; A9537

== ENCOUNTER 2020-01-05 05:38 | Outpatient (RCR) | payer BC ==
[~2020-01-05] VITALS: Ht 167.7 cm; Wt 128.2 kg
[~2020-01-05 05:38] MED LIST changes: -CATHETER FLUSH 10 ML SYR IV PRN
== END 2020-01-05 15:03 | disposition home or self-care (01) ==
LOC: PREOP 05:38
PROVIDERS: ATTEND Surgery
DX: Z01.818 Encounter for other preprocedural examination (principal); K21.9 Gastro-esophageal reflux disease without esophagitis; Z20.828 Contact with and (suspected) exposure to other viral communicable diseases
CPT/HCPCS: 87635

== ENCOUNTER 2020-01-09 09:26 | Day surgery (SDC) | payer BC ==
[~2020-01-09] VITALS: Ht 167.7 cm; Wt 128.2 kg
[2020-01-09] MEDS ORDERED: LACTATED RINGERS 1,000 ML IV STA (09:37)
--- NOTE | 2020-01-09 09:37 | Progress Note-Pre Operative ---
Pre-Operative Progress Note H&P Reviewed The H&P was reviewed, patient examined and no changes noted. Time Seen by Provider: 09:36 Date H&P Reviewed: Jan 09, 2020 Time H&P Reviewed: 09:36 Pre-Operative Diagnosis: Gastritis, Reflux MARANDA LUCAS DO Jan 09, 2020 09:37
[2020-01-09] MEDS ORDERED: HURRICAINE EXT TUBE (BENZOCAINE) XX PRN (09:45)
[2020-01-09] MEDS ORDERED: LACTATED RINGERS 1,000 ML IV ONE (09:52)
[2020-01-09 10:10] VITALS: BP 150/89
[2020-01-09] MEDS ORDERED: MIDAZOLAM 2 MG/2 ML (VERSED) VIAL ONE (10:28)
[2020-01-09] MEDS ORDERED: PROPOFOL INJECTION 50 ML IV ONE (10:28)
--- NOTE | 2020-01-09 10:41 | Progress Note-Post Operative ---
Post-Operative Progess Note Surgeon (s)/Cane Packer (s) Surgeon MARANDA LUCAS DO Cane Packer: none Pre-Operative Diagnosis Gastritis, Reflux Post-Operative Diagnosis Antral Ulcer Esophagitis Hiatal Hernia Procedure & Operative Findings Date of Procedure 01/09/20 Procedure Performed/Findings EGD with bx Anesthesia Type IV sedation by TRANSFUSION NURSE Estimated Blood Loss Estimated blood loss (mL): scant Specimens/Packing Specimens Removed antral ulcer bx body of stomach bx GE jxn bx MARANDA LUCAS DO Jan 09, 2020 10:41
--- NOTE | 2020-01-09 10:42 | Endoscopy Discharge Instruct ---
Endo Procedure/Findings Findings 1.: Gastric Ulcer 2.: Hiatal Hernia 3.: Other Findings (Esophagitis) Discharge Instructions - Activity: You might feel a little sleepy until tomorrow. This is due to the medicine you received to relax you. Until tomorrow, you should: NOT drive a car, operate machinery or power tools. NOT drink any alcoholic beverages. NOT make any important decisions or sign importortant papers. Do not return to work until tomorrow, unless otherwise instructed. Resume previous activities tomorrow. Diet: Start by taking liquids. If you tolerate liquids, advance to solid food. make an appointment in 2 weeks 1.: EGD in 1 year Notify Physician - If you experience excessive bleeding, unusual abdominal pain, fever, or chest pain, contact your doctor immediately. MARANDA LUCAS DO Jan 09, 2020 10:42
[2020-01-09 10:45] VITALS: BP 126/67
[2020-01-09] MEDS ORDERED: HURRICAINE EXT TUBE (BENZOCAINE) ONE (10:48)
[2020-01-09 10:50] VITALS: BP 126/67
--- OUTSIDE RECORDS SUMMARY | 2020-01-09 11:03 | XMS REPORT | Continuity of Care Document ---
Author Organization Unknown Address Unknown Phone Unavailable Allergies Active Description Code Type Severity Reaction Onset Reported/Identified Relationship to Patient Clinical Status Yes No Known Drug Allergies [id number] Drug Allergy Unknown N/A 01/10/2015 Medications There is no data. Problems Date Dx Coded Attending Type Code Diagnosis Diagnosed By 07/26/2014 RIGOBERTO BIRD, YASMINE Smith Ot 246.2 12/20/2014 YASMINE FRANKLIN MD Ot 246.2 01/10/2015 CÉSAR BIRD, LEXUS Menezes Ot 401.9 HYPERTENSION NOS 01/10/2015 CÉSAR BIRD, LEXUS Menezes Ot 493.90 ASTHMA, UNSPECIFIED 01/10/2015 CÉSAR BIRD, LEXUS Menezes Ot V76.51 SCREEN MAL NEOP-COLON 01/29/2015 YASMINE FRANKLIN MD Ot V76.12 12/28/2019 YASMINE FRANKLIN MD Ot V76.12 OTH SCREEN MAMMO-MALIGN NEOPLASM OF ZANE 12/28/2019 CÉSAR BIRD, LEXUS Menezes Ot V72.84 EXAM PRE-OPERATIVE NOS 12/30/2019 CRISS BIRD, DEVENDRA Valverde Ot I10 ESSENTIAL (PRIMARY) HYPERTENSION 12/30/2019 DEVENDAR KAHN MD Ot K21.9 GASTRO-ESOPHAGEAL REFLUX DISEASE WITHOUT 12/30/2019 DEVENDRA KAHN MD Ot R10.11 RIGHT UPPER QUADRANT PAIN Procedures There is no data. Results Test [...] 7-25 CREATININE 0.80 mg/dL 0.50-1.05 eGFR NON-AFR. ICELANDIC 81 mL/min/1.73m2 > OR = 60 eGFR [...] 18 U/L 10-35 ALT 18 U/L 6-29 Complete blood count (CBC) with automate d white blood cell (WBC) differential - 12/28/19 09:05 Blood leukocytes automated count (number/volume) 7.3 10*3/uL 4.3-11.0 Blood erythrocytes automated count (number/volume) 4.02 10*6/uL 4.35-5.85 Venous blood hemoglobin measurement (mass/volume) 12.3 g/dL 11.5-16.0 Blood hematocrit (volume fraction) 38 % 35-52 Automated erythrocyte mean corpuscular volume 94 [ foz_us] 80-99 Automated erythrocyte mean corpuscular h emoglobin (mass per erythrocyte) 31 pg 25-34 Automated erythrocyte mean corpuscular h emoglobin concentration measurement (mass/volume) 33 g/dL 32-36 Automated erythrocyte distribution width ratio 14. 1 % 10.0- 14.5 Automated blood platelet count (count/volume) 380 10*3/uL 130-400 Automated blood platelet mean volume measurement 10.0 [foz_us] 7.4-10.4 Automated blood neutrophils/100 leukocytes 70 % 42-75 Automated blood lymphocytes/100 leukocytes 16 % 12-44 Blood monocytes/100 leukocytes 9 % 0-12 Automated blood eosinophils/100 leukocytes 4 % 0-10 Automated blood basophils/100 leukocytes 0 % 0-10 Blood neutrophils automated count (number/volume) 5.2 10*3 1.8-7.8 Blood lymphocytes automated count (number/volume) 1.2 10*3 1.0-4.0 Blood monocytes automated count (number/volume) 0. 6 10*3 0.0-1.0 Automated eosinophil count 0.3 10*3/uL 0 .0-0.3 Automated blood basophil count (count/volume) 0.0 10*3/uL 0.0-0.1 Comprehensive metabolic panel - 12/28/19 09:05 Serum or plasma sodium measurement (moles/volume) 140 mmol/L 135-145 Serum or plasma potassium measurement (moles/volume) 3.9 mmol/L 3.6-5.0 Serum or plasma chloride measurement (moles/volume) 103 mmol/L 98-107 Carbon dioxide 26 mmol/L 21-32 Serum or plasma anion gap determination (moles/volume) 11 mmol/L 5-14 Serum or plasma urea nitrogen measurement (mass/volume ) 20 mg/dL 7-18 Serum or plasma creatinine measurement (mass/volume) 0.88 mg/dL 0.60-1.30 Serum or plasma urea nitrogen/creatinine mass ratio 23 NRG Serum or plasma creatinine measurement w ith calculation of estimated glomerular filtration rate > NRG Serum or plasma glucose measurement (mass/volume) 101 mg/dL 70-105 Serum or plasma calcium measurement (mass/volume) 9.5 mg/dL 8.5-10.1 Serum or plasma total bilirubin measurement (mass/volu me) 0.4 mg/dL 0.1-1.0 Serum or plasma alkaline phosphatase mainor surement (enzymatic activity/volume) 92 U/L 40-136 Serum or plasma aspartate aminotransfera se measurement (enzymatic activity/volume) 19 U/L 5-34 Serum or plasma alanine aminotransferase measurement (enzymatic activity/volume) 17 U/L 0-55 Serum or plasma protein measurement (mass/volume) 7.7 g/dL 6.4-8.2 Serum or plasma albumin measurement (mass/volume) 4.2 g/dL 3.2-4.5 CALCIUM CORRECTED 9.3 mg/dL 8.5-10.1 Complete urinalysis with reflex to cultu re - 12/28/19 09:05 Urine color determination YELLOW NRG Urine clarity determination CLEAR NR G Urine pH measurement by test strip 6.5 5-9 Specific gravity of urine by test strip 1.020 1.016-1.022 Urine protein assay by test strip, semi-quantitative NEGATIVE NEGATIVE Urine glucose detection by automated test strip NE GATIVE NEGATIVE Erythrocytes detection in urine sediment by light micr oscopy NEGATIVE NEGATIVE Urine ketones detection by automated test strip NE GATIVE NEGATIVE Urine nitrite detection by test strip NEGATIVE NEGATIVE Urine total bilirubin detection by test strip NEGA TIVE NEGATIVE Urine urobilinogen measurement by automated test strip (mass/volume) 0.2 mg/dL < = 1.0 Urine leukocyte esterase detection by dipstick 3+ NEGATIVE Automated urine sediment erythrocyte cou nt by microscopy (number/high power field) NONE NRG Automated urine sediment leukocyte count by microscopy (number/high power field) [HPF] NRG Bacteria detection in urine sediment by light microsco py FEW NRG Squamous epithelial cells detection in u rine sediment by light microscopy 5-10 NRG Crystals detection in urine sediment by light microsco py NONE NRG Casts detection in urine sediment by light microscopy NONE NRG Mucus detection in urine sediment by light microscopy NEGATIVE NRG Complete urinalysis with reflex to culture YES NRG Lipase - 12/28/19 09:05 Lipase 9 U/L 8-78 Serum or plasma C reactive protein measu rement (mass/volume) - 12/28/19 09:05 Serum or plasma C reactive protein measurement (mass/v olume) 0.44 mg/dL 0.00-0.50 Bacterial urine culture - 12/28/19 09:05 Bacterial urine culture 3 OR MORE NRG COLONY COUNT >100,000/ML NRG SUSCEPTIBILITY SUGGESTING PROBABLE COLLECTION NRG MRSA SCREEN CONTAMINATION WITH SKIN MIKI. NRG RAPID ID NO SUSCEPTIBILITY PERFORMED N RG Coronavirus SARS-CoV-2 SO 2018 - 0 08:11 Coronavirus Ab [Units/volume] in Serum Negative Negative Encounters ACCT No. Visit Date/Time Discharge Status Pt. Type Provider Facility Loc./Unit Complaint [id number] 06/09/2019 13:40:00 06/09/2019 23:59:5 9 CLS Outpatient [facility] [id number] 09/22/2018 10:40:00 Document Registration [id number] 01/05/2020 05:38:00 020 15:03:00 DIS Outpatient MARANDA LUCAS DO [facility] PREOP EGD [id number] 01/03/2020 09:09:00 23:59:59 CLS Outpatient MARANDA LUCAS DO [facility] CARD EPIGASTRIC ABD TENDERNE SS [id number] 12/28/2019 08:43:00 10:27:00 DIS Outpatient DEVENDRA KAHN MD [facility] ER UPPER LEFT ABD PAIN [id number] 01/10/2015 12:16:00 015 15:35:00 DIS Outpatient LEXUS LINDSEY MD [facility] SDC FAMILY HX COLON CA/SCR EENING [id number] 01/04/2015 06:18:00 23:59:59 CLS Outpatient LEXUS LINDSEY MD [facility] PREOP FAMILY HX COLON CA/SCR EENING [id number] 12/21/2014 15:18:00 015 23:59:59 CLS Outpatient YASMINE FRANKLIN MD [facility] RAD SCREENING [id number] 06/29/2014 15:11:00 014 23:59:59 CLS Outpatient YASMINE FRANKLIN MD [facility] RAD [id number] 01/09/2020 11:20:00 P EN Preadmit MARANDA LUCAS DO [facility] ENDO REFLUX [id number] 11/12/2016 11:10:00 Document Registration
--- NOTE | 2020-01-09 11:05 | Anesthesia-General Post-Op ---
MAC Patient Condition Mental Status/LOC: Same as Preop Cardiovascular: Satisfactory Nausea/Vomiting: Absent Respiratory: Satisfactory Pain: Controlled Complications: Absent Post Op Complications Complications None Follow Up Care/Instructions Patient Instructions None needed. Anesthesiology Discharge Order Discharge Order Patient is doing well, no complaints, stable vital signs, no apparent adverse anesthesia problems. No complications reported per nursing. APRIL KHAN CRNA Jan 09, 2020 11:05
[2020-01-09 11:10] VITALS: BP 156/84
[2020-01-09 11:21] VITALS: BP 156/84
--- NOTE | 2020-01-10 01:27 | OPERATIVE REPORT ---
DATE OF SERVICE: 01/09/2020 PREOPERATIVE DIAGNOSIS: Gastritis. POSTOPERATIVE DIAGNOSES: Antral ulcer, esophagitis, hiatal hernia. PROCEDURE: EGD with biopsy. SURGEON: Eligio Moss DO BUSINESS PROCESS ARCHITECT: None. ANESTHESIA: IV sedation by the CLINICAL ASST. SPECIMEN: Biopsy from the antrum right on the antral ulcer. Biopsy of body of stomach and then biopsy from the GE junction. BLOOD LOSS: Scant. FLUIDS: Per anesthesia. POSTOPERATIVE CONDITION: Stable. INDICATION FOR PROCEDURE: The patient is a 59-year-old female who has been having severe epigastric pain. She has a history of chronic gastritis and needed a workup. FINDINGS: The patient had what looked like an ulcer in the antrum. Picture taken. Biopsy done and she also had a pretty large hiatal hernia as well as some esophagitis. PROCEDURE NOTE: After informed consent was obtained, the patient was brought to the endoscopy suite, placed in bed in left lateral decubitus position. She was administered IV sedation by the CLINICAL ASST who monitored her vitals the entire time, heart rate, blood pressure and pulse ox and the scope was inserted down the mouth through the esophagus into the stomach. Upon entering the stomach, pushed towards the antrum, saw what looked like a small ulcer, pushing the duodenum, duodenum looked fine, pulled back and did a biopsy of this antral ulcer and then retroflexed the scope, saw pretty large hiatal hernia, did a biopsy of the body of stomach and then pulled the scope into the GE junction and did a biopsy of the GE junction, did note some mild esophagitis at this point, then pushed the scope back into the stomach, suctioned all the air out and then pulled the scope up the esophagus out of the mouth. The patient tolerated the procedure and was recovered in endoscopy suite. Job ID: [id number] DocumentID: [id number] Dictated Date: 01/09/2020 16:45:27 Java User Interface Developer Date: 01/10/2020 01:26:13 Dictated By: ELIGIO MOSS DO [facility]
== END 2020-01-09 11:22 | disposition home or self-care (01) ==
LOC: ENDO 09:26
PROVIDERS: ATTEND Surgery
DX: K21.0 Gastro-esophageal reflux disease with esophagitis (principal); K29.50 Unspecified chronic gastritis without bleeding; K44.9 Diaphragmatic hernia without obstruction or gangrene; K25.9 Gastric ulcer, unspecified as acute or chronic, without hemorrhage or perforation; J45.909 Unspecified asthma, uncomplicated; E66.9 Obesity, unspecified; I10 Essential (primary) hypertension; Z79.51 Long term (current) use of inhaled steroids; Z79.2 Long term (current) use of antibiotics; Z79.891 Long term (current) use of opiate analgesic; Z79.899 Other long term (current) drug therapy; Z68.42 Body mass index [BMI] 45.0-49.9, adult; Z82.3 Family history of stroke
CPT/HCPCS: 88305

== ENCOUNTER 2021-01-25 05:42 | Outpatient (RCR) | payer BC ==
[~2021-01-25] VITALS: Ht 165.1 cm; Wt 122.5 kg
[~2021-01-25 05:42] MED LIST changes: +ATOR20TA66 PO; -MONT10TA26 PO; +MONT10TA32 PO
== END 2021-01-25 12:16 | disposition home or self-care (01) ==
LOC: PREOP 05:42
PROVIDERS: ATTEND Surgery
DX: Z01.812 Encounter for preprocedural laboratory examination (principal); Z20.822 Contact with and (suspected) exposure to COVID-19; Z87.11 Personal history of peptic ulcer disease; Z80.0 Family history of malignant neoplasm of digestive organs
CPT/HCPCS: 87635

== ENCOUNTER 2021-01-30 11:36 | Day surgery (SDC) | payer BC ==
[~2021-01-30] VITALS: Ht 165.1 cm; Wt 122.5 kg
[2021-01-30] MEDS ORDERED: LACTATED RINGERS 1,000 ML IV STA (11:43)
[2021-01-30] MEDS ORDERED: HURRICAINE EXT TUBE (BENZOCAINE) XX PRN (11:45)
[2021-01-30] MEDS ORDERED: LACTATED RINGERS 1,000 ML IV ONE (11:51)
--- NOTE | 2021-01-30 11:51 | Progress Note-Pre Operative ---
Pre-Operative Progress Note H&P Reviewed The H&P was reviewed, patient examined and no changes noted. Time Seen by Provider: 11:48 Date H&P Reviewed: Jan 30, 2021 Time H&P Reviewed: 11:48 Pre-Operative Diagnosis: Hx of Gastric Ulcer, Screening Colon for Family hx of Colon CA MARANDA LUCAS DO Jan 30, 2021 11:51
[2021-01-30 12:03] VITALS: BP 150/92
[2021-01-30] MEDS ORDERED: PROPOFOL INJECTION 50 ML IV ONE (12:17)
[2021-01-30 12:51] VITALS: BP 156/74
[2021-01-30 12:52] VITALS: BP 156/74
--- NOTE | 2021-01-30 12:52 | Progress Note-Post Operative ---
Post-Operative Progess Note Surgeon (s)/Second Operator (s) Surgeon MARANDA LUCAS DO Second Operator: NONE Pre-Operative Diagnosis Hx of Gastric Ulcer, Screening Colon for Family hx of Colon CA Post-Operative Diagnosis Antral Ulcer hiatal hernia Esophagitis Procedure & Operative Findings Date of Procedure 01/30/21 Procedure Performed/Findings PROCEDURE NOTE: After informed consent was obtained, the patient was brought to the endoscopy suite, placed in bed in left lateral decubitus position. She was administered IV sedation by the TIE LOADER who then monitored her vitals the entire time, heart rate, blood pressure and pulse ox, started with the EGD, placed the scope down the mouth through the esophagus into the stomach, note what looked like antral ulcers took a picture, pushed into the duodenum. Duodenum looked normal. Pulled back and did a biopsy of the antrum as well as biopsy of body of stomach, retroflexed the scope. She had a hiatal herni, pulled the scope into the GE junction, did a biopsy here and then pushed the scope back into the stomach and suctioned all the air out, then pulled the scope up the esophagus and out the mouth. Switched camera, switched gloves, went down below, started the colonoscopy. On the way in, noted diverticula, took a picture of this, then pushed all the way to the cecum about 150 cm in, took a picture of the appendiceal orifice and noted the ileo-cecal valve. Then slowly withdrew the scope insufflating to look circumferentially at the barraza looking at the cecum, up the ascending colon, to the hepatic flexure, down the transverse colon, to the splenic flexure, into the descending colon down. In the Sigmoid colon saw a small polyp and did a hot biopsy. Then finally into the rectum, retroflexed in the rectal vault, saw sone minimal internal hemorrhoids and took a picture. Then removed the scope. The patient tolerated the procedure. She was recovered in endoscopy suite. Anesthesia Type IV sedation by TIE LOADER Estimated Blood Loss Estimated blood loss (mL): scant Specimens/Packing Specimens Removed antral ulcer bx body of stomach bx GE jxn bx Sigmoid polyp MARANDA LUCAS DO Jan 30, 2021 12:52
--- NOTE | 2021-01-30 12:52 | Endoscopy Discharge Instruct ---
Endo Procedure/Findings Findings 1.: Gastric Ulcer 2.: Hiatal Hernia 3.: Polyp 4.: Diverticulosis, Internal Hemorrhoids Discharge Instructions - Activity: You might feel a little sleepy until tomorrow. This is due to the me dicine you received to relax you. Until tomorrow, you should: NOT drive a car, operate machinery or power tools. NOT drink any alcoholic beverages. NOT make any important decisions or sign importortant papers. Do not return to work until tomorrow, unless otherwise instructed. Resume previous activities tomorrow. Diet: Start by taking liquids. If you tolerate liquids, advance to solid food. 1.: EGD in 1 year 2.: Colonscopy in 5 years Notify Physician - If you experience excessive bleeding, unusual abdominal pain, fever, or chest pain, contact your doctor immediately. MARANDA LUCAS DO Jan 30, 2021 12:52
[2021-01-30 13:22] VITALS: BP 155/91
--- NOTE | 2021-01-30 13:31 | Anesthesia-General Post-Op ---
MAC Patient Condition Mental Status/LOC: Same as Preop Cardiovascular: Satisfactory Nausea/Vomiting: Absent Respiratory: Satisfactory Pain: Controlled Complications: Absent Post Op Complications Complications None Follow Up Care/Instructions Patient Instructions None needed. Anesthesiology Discharge Order Discharge Order Patient is doing well, no complaints, stable vital signs, no apparent adverse anesthesia problems. No complications reported per nursing. STAR ECHAVARRIA CRNA Jan 30, 2021 13:31
== END 2021-01-30 13:22 ==
LOC: ENDO 11:36
PROVIDERS: ATTEND Surgery
DX: Z12.11 Encounter for screening for malignant neoplasm of colon (principal); K63.5 Polyp of colon; K25.9 Gastric ulcer, unspecified as acute or chronic, without hemorrhage or perforation; K21.00 Gastro-esophageal reflux disease with esophagitis, without bleeding; K44.9 Diaphragmatic hernia without obstruction or gangrene; K57.30 Diverticulosis of large intestine without perforation or abscess without bleeding; K64.8 Other hemorrhoids; K82.8 Other specified diseases of gallbladder; I10 Essential (primary) hypertension; J45.909 Unspecified asthma, uncomplicated; E66.01 Morbid (severe) obesity due to excess calories; E78.5 Hyperlipidemia, unspecified; Z79.899 Other long term (current) drug therapy; Z20.822 Contact with and (suspected) exposure to COVID-19; Z68.41 Body mass index [BMI] 40.0-44.9, adult; Z80.0 Family history of malignant neoplasm of digestive organs

== ENCOUNTER → 2021-02-07 | Outpatient (CLI) | payer BC ==
[~2021-02-07] VITALS: Ht 165 cm; Wt 120.0 kg
[~2021-02-07] MED LIST changes: +CATHETER FLUSH 10 ML SYR IV PRN
--- NOTE | 2021-02-07 11:15 | Diagnostic Imaging Report ---
INDICATION: Dyspnea on exertion. Baseline. FINDINGS: PA and lateral views show mild hyperaeration bilaterally. There is mild cardiomegaly. There does appear to be prominent pericardial fat pad on the right. There are no infiltrates. No pneumothorax or pleural effusion. No bony abnormalities. IMPRESSION: 1. Mild obstructive pulmonary disease. 2. Mild cardiomegaly without evidence of failure. Dictated by: Dictated on workstation # [id number]
[2021-02-07 11:51] VITALS: BP 158/99
--- NOTE | 2021-02-07 16:28 | NUCLEAR STRESS TEST ---
TREADMILL NUCLEAR STRESS TEST Date of procedure: 02/07/2021. Primary care provider: Frances Riddle APRN. Admitting physician: Lee Johnson Jr., MD. INDICATION: Abnormal ECG. BASELINE ELECTROCARDIOGRAM: Sinus rhythm with nonspecific ST changes. STRESS TEST PROCEDURE: The patient was exercised for a total of 4 minutes and 2 seconds of the standard Brandt protocol achieving a maximum MET level of 5.8. The resting heart rate was 76 bpm and the peak heart rate was 147 bpm, which repr esents 91% of the maximum predicted heart rate. The resting blood pressure was 158/99 mmHg and the peak blood pressure was 188/87 mmHg. This represents a normal heart rate and a normal blood pressure response to exercise. The test was stopped due to the patient attaining the target heart rate. There was no chest discomfort during the test. There were isolated premature ventricular complexes during the test. The stress electrocardiogram was indeterminate due to the baseline abnormalities. The patient exhibited fair exercise capacity for age. NUCLEAR PROCEDURE: The patient was administered 10.8 mCi of intravenous technetium 99m Tetrofosmin at rest for the rest images. The patient was subsequently administered 31.3 mCi of intravenous technetium 99 M Tetrofosmin at peak stress for the stress images. Following an appropriate wait after each injection, imaging was obtained. The images were subsequently processed and reformatted in the usual views. Gated imaging was obtained. The image quality was adequate but with gastrointestinal and breast attenuation artifact. NUCLEAR RESULTS: There was normal myocardial perfusion in all segments, other than breast attenuation artifact, without evidence of infarction or ischemia. There was normal left ventricular chamber size with an end-diastolic volume of 75 mL and an end-systolic volume of 36 mL. There was no evidence of transient ischemic dilatation. The TID ratio was 0.85. There was normal wall motion in all segments with a calculated ejection fraction of 53%. IMPRESSION: 1. Normal heart rate and blood pressure response to exercise. 2. There was no chest discomfort during the test. 3. There were isolated premature ventricular complexes during stress that resolved in recovery. 4. The stress electrocardiogram is indeterminate due to the baseline abnormalities. 5. The patient exhibited fair exercise capacity for age at 4 minutes and 2 seconds of the standard Brandt protocol. 6. There was normal myocardial perfusion in all segments, other than breast attenuation artifact, without evidence of infarction or ischemia. 7. There was normal wall motion in all segments with a calculated ejection fraction of 53%. LEE JOHNSON JR, MD Feb 07, 2021 16:28
== END ==
LOC: CARD 10:17
PROVIDERS: ATTEND Internal Medicine Cardiovascular Disease
DX: I51.7 Cardiomegaly (principal); J44.9 Chronic obstructive pulmonary disease, unspecified; I49.3 Ventricular premature depolarization
CPT/HCPCS: 71046; 78452; 93017; 93225; 93226; 93306; A9502

== ENCOUNTER → 2021-02-18 | Outpatient (CLI) | payer BC ==
[~2021-02-18] MED LIST changes: -CATHETER FLUSH 10 ML SYR IV PRN
[2021-02-18 16:26] LABS: BASOPHILS % (AUTO) 1 % (0-10); EOSINOPHILS # (AUTO) 0.5 10^3/uL (0.0-0.3); EOSINOPHILS % (AUTO) 7 % (0-10); HEMATOCRIT 42 % (35-52); HEMOGLOBIN 13.3 g/dL (11.5-16.0); LYMPHOCYTES # (AUTO) 1.4 10^3/uL (1.0-4.0); LYMPHOCYTES % (AUTO) 20 % (12-44); MEAN CORPUSCULAR HEMOGLOBIN 31 pg (25-34); MEAN CORPUSCULAR HGB CONC 32 g/dL (32-36); MEAN CORPUSCULAR VOLUME 97 fL (80-99); MONOCYTES # (AUTO) 0.8 10^3/uL (0.0-1.0); MONOCYTES % (AUTO) 12 % (0-12); NEUTROPHILS # (AUTO) 4.2 10^3/uL (1.8-7.8); NEUTROPHILS % (AUTO) 61 % (42-75); PLATELET COUNT 397 10^3/uL (130-400)
[2021-02-18 16:42] LABS: INR 0.9 (0.8-1.4); PROTHROMBIN TIME PATIENT 12.7 SEC (12.2-14.7)
[2021-02-18 16:44] LABS: POTASSIUM 3.3 MMOL/L (3.6-5.0)
[2021-02-18 16:46] LABS: CALCIUM 9.3 MG/DL (8.5-10.1)
[2021-02-18 16:50] LABS: CREATININE SERUM 1.17 MG/DL (0.60-1.30)
== END ==
LOC: LAB 16:04
PROVIDERS: ATTEND Internal Medicine Cardiovascular Disease
DX: I10 Essential (primary) hypertension (principal); I47.2 Ventricular tachycardia
CPT/HCPCS: 36415; 80048; 85025; 85610

== ENCOUNTER 2021-02-21 09:00 | Day surgery (SDC) | payer BC ==
[~2021-02-21] VITALS: Ht 165 cm; Wt 74.0 kg
[2021-02-21 08:02] VITALS: BP 154/105
[~2021-02-21 09:00] MED LIST changes: +ASPI-999 PO; +ASPIRIN 81 MG CHEW (CHILDREN'S ASA) PO ONE; +CATHETER FLUSH 10 ML SYR IV PRN; +FAMO-144 PO; +HEParin (CATH LAB) 2,000 ML IV ONE; +LIDOCAINE 1% INJ 20 ML 20 ML VIAL ONE; +MECO10005 PO; +NS IV 1000 ML 1,000 ML IV ONE; +NS IV 1000 ML 1,000 ML IV SCH; +NS IV 1000 ML 1,000 ML ONE; +PATIENT MAY USE OWN MEDS, ALL PO SCH
--- NOTE | 2021-02-21 09:12 | Cardiac Cath Report ---
CARDIAC CATHETERIZATION DATE OF PROCEDURE: 02/21/2021. INDICATION: Ventricular tachycardia. HISTORY: The patient is a 60 year old female, who had been having some palpitations and was found to have premature ventricular complexes on a Holter monitor. She also had accelerated idioventricular rhythm. I had her undergo a nuclear stress test that showed normal perfusion other than breast attenuation artifact and a normal ejection fraction. However, due to the possible accelerated idioventricular rhythm, she is now referred for further evaluation with a cardiac catheterization. PROCEDURES PERFORMED: 1. Left heart catheterization with hemodynamic measurements. 2. Diagnostic bois forte coronary angiography. PROCEDURE DESCRIPTION: Left heart catheterization was performed through the right radial artery utilizing a 6 Telugu system by percutaneous approach. Standard 5 Telugu Bryan catheters were utilized for the diagnostic portion of the procedure. All catheters were exchanged over a guidewire. RESULTS: HEMODYNAMICS: The aortic pressure was 120/72 mmHg. The left ventricular pressure was 121 over 0 mmHg with a left ventricular end-diastolic pressure of 4 mmHg. There was no significant pressure gradient upon pullback across the aortic valve. CORONARY ANGIOGRAPHY: Left main coronary artery: Free of significant disease. Left anterior descending coronary artery: Free of significant disease. Left circumflex coronary artery: Codominant and free of significant disease. Right coronary artery: Codominant and free of significant disease. IMPRESSION: 1. Normal left heart pressures. 2. Angiographically normal-appearing coronary arteries in a codominant system. 3. The patient is known to have normal left ventricular systolic function with a calculated ejection fraction of 53% by her previous nuclear stress test. Certain portions of this document may have been dictated utilizing voice recognition technology. Inherent to this technology, typographical and grammatical errors may exist. As much as I am diligent to identify and correct these mistakes, some errors may remain in the document. JUAN LEWIS JR, MD Feb 21, 2021 09:12
== END 2021-02-21 14:45 ==
LOC: CATH 09:00 → CSD 12:55 → CATH 14:45
PROVIDERS: ATTEND Internal Medicine Cardiovascular Disease
DX: I47.2 Ventricular tachycardia (principal); I10 Essential (primary) hypertension; R06.09 Other forms of dyspnea; R94.31 Abnormal electrocardiogram [ECG] [EKG]; J45.909 Unspecified asthma, uncomplicated; E66.01 Morbid (severe) obesity due to excess calories; E78.2 Mixed hyperlipidemia; K21.9 Gastro-esophageal reflux disease without esophagitis; Z68.27 Body mass index [BMI] 27.0-27.9, adult; Z79.82 Long term (current) use of aspirin; Z79.899 Other long term (current) drug therapy; Z80.0 Family history of malignant neoplasm of digestive organs; Z82.49 Family history of ischemic heart disease and other diseases of the circulatory system

== ENCOUNTER → 2021-03-14 | Outpatient (CLI) | payer BC ==
[~2021-03-14] MED LIST changes: -ASPIRIN 81 MG CHEW (CHILDREN'S ASA) PO ONE; -CATHETER FLUSH 10 ML SYR IV PRN; -HEParin (CATH LAB) 2,000 ML IV ONE; -LIDOCAINE 1% INJ 20 ML 20 ML VIAL ONE; -NS IV 1000 ML 1,000 ML IV ONE; -NS IV 1000 ML 1,000 ML IV SCH; -NS IV 1000 ML 1,000 ML ONE; -PATIENT MAY USE OWN MEDS, ALL PO SCH
[2021-03-14 09:35] LABS: PROTHROMBIN TIME PATIENT 13.5 SEC (12.2-14.7)
[2021-03-14 09:40] LABS: CALCIUM 9.9 MG/DL (8.5-10.1); CREATININE SERUM 1.13 MG/DL (0.60-1.30); POTASSIUM 3.5 MMOL/L (3.6-5.0)
== END ==
LOC: LAB 09:03
PROVIDERS: ATTEND Internal Medicine Cardiovascular Disease
DX: I10 Essential (primary) hypertension (principal); I47.2 Ventricular tachycardia
CPT/HCPCS: 36415; 80048; 85610

== ENCOUNTER 2022-11-13 09:01 | Emergency (ER) | payer BC ==
[~2022-11-13] VITALS: Ht 165.1 cm; Wt 108.9 kg
[~2022-11-13 09:01] MED LIST changes: +MONT-40 PO; -MONT10TA32 PO
--- NOTE | 2022-11-13 09:49 | ED General ---
General Stated Complaint: KIDNEY ISSUES | WHEEZING | SOB Source of Information: Patient Exam Limitations: No Limitations History of Present Illness Date Seen by Provider: Nov 13, 2022 Time Seen by Provider: 09:49 Initial Comments Patient is a 62-year-old female who presents to the emergency room with a chief complaint of shortness of breath, cough. Patient states that she often gets fluid overloaded. She was a patient of Dr. Johnson prior to him leaving [facility]. She states she had a big cardiac work-up 2 years ago and was told she had a "good heart" no congestive heart failure. She has had issues with chronic kidney disease, she sees a conservation engineer at [facility] in [place]. She states she has been told her kidney disease was due to overuse of ibuprofen. She states about 2 weeks ago she was given a course of 5 days of diuretic therapy by her primary care provider and she lost 24 pounds. She states since she discontinued that a week ago last Thursday she has gained back 5 pounds and her cough is returning. She is having a difficult time sleeping due to what sounds like orthopnea. She denies fevers, chills, URI symptoms. No diarrhea. She has normal urine output. She states her legs are little swollen today. Patient states she has follow-up scheduled with either Dr. Alexis or Dr. Pires in November. She is asking for a little more diuretic therapy. I did review her echo from 2020, January. She had a 55 to 60% EF according to the medical record. Timing/Duration: 1-2 Days Severity: Moderate Associated Systoms: Cough, Shortness of Air, Other (Orthopnea, shortness of breath on exertion) Allergies and Home Medications Allergies Coded Allergies: lidocaine (Verified Allergy, Unknown, 11/13/22) Patient Home Medication List Home Medication List Reviewed: Yes Aspirin (Aspirin) 81 Mg Tab.chew, 81 MG PO DAILY, (Reported) Entered as Reported by: JACY LEE on 02/21/21 0813 Atorvastatin Calcium (Atorvastatin Calcium) 20 Mg Tablet, 20 MG PO DAILY, (Reported) Entered as Reported by: ASHLEY LUNDY on 01/23/21 1525 Famotidine (Acid Director Of Materials (FAMOTIDINE)) 10 Mg Tablet, 10 MG PO BID, (Reported) Entered as Reported by: JACY LEE on 02/21/21812 Losartan Potassium (Losartan Potassium) 50 Mg Tablet, 50 MG PO DAILY, (Reported) Entered as Reported by: BRENNON CATALAN on 12/28/19911 Mecobalamin (B12 Active) 1,000 Mcg Tab.chew, 1,000 MCG PO DAILY, (Reported) Entered as Reported by: JACY LEE on 02/21/21812 Montelukast Sodium (Montelukast Sodium) 10 Mg Tablet, 10 MG PO HS, (Reported) Entered as Reported by: BRENNON CATALAN on 12/28/19911 Triamterene/Hydrochlorothiazid (Triamterene-Hctz 37.5-25 mg Tb) 1 Each Tablet, 1 TAB PO DAILY, (Reported) Entered as Reported by: BRENNON CATALAN on 12/28/19911 Review of Systems Review of Systems Constitutional: see HPI EENTM: no symptoms reported Respiratory: dyspnea on exertion, orthopnea, short of breath Cardiovascular: no symptoms reported, edema Gastrointestinal: no symptoms reported Genitourinary: no symptoms reported Musculoskeletal: no symptoms reported Skin: no symptoms reported Psychiatric/Neurological: No Symptoms Reported All Other Systems Reviewed Negative Unless Noted: Yes Past Ihyhngy-Gagpgk-Idbign Hx Immunizations Up To Date Tetanus Booster (TDap): Unknown Seasonal Allergies Seasonal Allergies: Yes Past Medical History Surgeries: Yes (D&C) Respiratory: Yes Asthma Cardiac: Yes Hypertension Neurological: No Genitourinary: No Gastrointestinal: Yes Gastroesophageal Reflux Musculoskeletal: No Endocrine: No HEENT: No Cancer: No Psychosocial: No Integumentary: No Blood Disorders: No Family Medical History Colon cancer Other Conditions/Hx Physical Exam Vital Signs Vital Signs - First Documented 11/13/22 09:25 Temp 36.0 Pulse 95 Resp 18 B/P (MAP) 146/102 (117) Pulse Ox 97 O2 Delivery Nasal Cannula Capillary Refill : Height, Weight, BMI Height: 5'5.00" Weight: 250lbs. oz. 113.947676yw; 27.18 BMI Method: General Appearance: No Apparent Distress, WD/WN Eyes: Bilateral Eye Normal Inspection HEENT: PERRL/EOMI Neck: Normal Inspection Respiratory: No Accessory Muscle Use, No Respiratory Distress, Other (Scattered faint crackles at the bases, no wheezes, no increased work of breathing or respiratory distress) Cardiovascular: Regular Rate, Rhythm, Normal Peripheral Pulses (2+ radial bilateral) Gastrointestinal: Normal Bowel Sounds, Soft Extremity: Normal Inspection, Normal Range of Motion, Pedal Edema (1+ pitting edema bilateral lower extremities) Neurologic/Psychiatric: Alert, Oriented x3, No Motor/Sensory Deficits, Normal Mood/Affect, java sql developer II-XII Norm as Tested Progress/Results/Core Measures Suspected Sepsis SIRS Temperature: Pulse: Respiratory Rate: Laboratory Tests 11/13/22 09:40: White Blood Count 6.8 Blood Pressure / Mean: Laboratory Tests 11/13/22 09:40: Creatinine 1.19, Platelet Count 384 Results/Orders Lab Results Laboratory Tests Test 11/13/22 09:40 Range/Units White Blood Count 6.8 4.3-11.0 10^3/uL Red Blood Count 3.81 3.80-5.11 10^6/uL Hemoglobin 11.3 L 11.5-16.0 g/dL Hematocrit 35 35-52 % Mean Corpuscular Volume 93 80-99 fL Mean Corpuscular Hemoglobin 30 25-34 pg Mean Corpuscular Hemoglobin Concent 32 32-36 g/dL Red Cell Distribution Width 14.1 10.0-14.5 % Platelet Count 384 130-400 10^3/uL Mean Platelet Volume 10.0 9.0-12.2 fL Immature Granulocyte % (Auto) 0 % Neutrophils (%) (Auto) 69 42-75 % Lymphocytes (%) (Auto) 15 12-44 % Monocytes (%) (Auto) 11 0-12 % Eosinophils (%) (Auto) 4 0-10 % Basophils (%) (Auto) 0 0-10 % Neutrophils # (Auto) 4.6 1.8-7.8 10^3/uL Lymphocytes # (Auto) 1.0 1.0-4.0 10^3/uL Monocytes # (Auto) 0.8 0.0-1.0 10^3/uL Eosinophils # (Auto) 0.3 0.0-0.3 10^3/uL Basophils # (Auto) 0.0 0.0-0.1 10^3/uL Immature Granulocyte # (Auto) 0.0 0.0-0.1 10^3/uL Sodium Level 141 135-145 MMOL/L Potassium Level 3.7 3.6-5.0 MMOL/L Chloride Level 107 98-107 MMOL/L Carbon Dioxide Level 25 21-32 MMOL/L Anion Gap 9 5-14 MMOL/L Blood Urea Nitrogen 29 H 7-18 MG/DL Creatinine 1.19 0.60-1.30 MG/DL Estimat Glomerular Filtration Rate 52 BUN/Creatinine Ratio 24 Glucose Level 95 70-105 MG/DL Calcium Level 8.5 8.5-10.1 MG/DL B-Type Natriuretic Peptide 685.4 H <100.0 PG/ML My Orders Orders - SUNNY FULLER MD Ed Iv/Invasive Line Start (11/13/22 09:56) Cbc With Automated Diff (11/13/22 09:56) Basic Metabolic Panel (11/13/22 09:56) Chest 1 View, Ap/Pa Only (11/13/22 09:56) Bnp Swisher (11/13/22 10:16) Furosemide Injection (Lasix Injection) (11/13/22 11:45) Medications Given in ED Current Medications Medications Dose Ordered Sig/Concetta Route Start Time Stop Time Status Last Admin Dose Admin Furosemide 20 mg ONCE ONCE IVP 11/13/22 11:45 11/13/22 11:46 DC 11/13/22 11:47 20 MG Vital Signs/I&O 11/13/22 09:25 Temp 36.0 Pulse 95 Resp 18 B/P (MAP) 146/102 (117) Pulse Ox 97 O2 Delivery Nasal Cannula Capillary Refill : Progress Note : Time: 12:18 Progress Note Patient seen and examined by me. Evaluation today includes physical exam, CBC, basic metabolic panel, BNP And single view chest x-ray. Pertinent physical exam findings pertinent for well-developed well-nourished female in no acute distress, mild rhonchi in the lung bases bilaterally. Normal oxygen sats at 95%. No increased work of breathing. Abdomen is soft, heart is regular. Trace to 1+ pitting edema bilateral lower extremities. No focal neurodeficits. Differential diagnosis based on history and physical exam, acute CHF exacerbation, URI/viral pneumonia, nonspecific peripheral edema. Labs independently reviewed by me, CBC shows a hemoglobin of 11.3. BUN and creatinine on chemistry are 29 and 1.19. GFR of 52. Her BNP is elevated at 685, there is no older levels to compare to. Her chest x-ray does show findings of increased pulmonary vascular congestion without florid pulmonary edema. Patient is comfortable resting on the stretcher, no distress. Her sats are good. No labored breathing. No chest pain. Consideration for admission for repeat echo however patient appears stable and has scheduled outpatient follow- up. Discussed with her giving her a dose of Lasix here in the emergency department and 3 more days at home. She is very agreeable to this. Will discharge to home with instructions to avoid excess salt, watch her fluid intak e, and keep her appointment with cardiology next month. No clinical indications for admission at this time. She is happy with plan of care. All questions are sought and answered Diagnostic Imaging Diagonstic Imaging: Xray Plain Films/CT/US/NM/MRI: chest Comments [facility], [place] NAME: EMRE ACOSTA [employer] REC#: [id number] PT STATUS: REG ER : 1960 PHYSICIAN: SUNNY FULLER MD ADMIT DATE: 11/13/22/ER Signed Date of Exam:11/13/22 CHEST 1 VIEW, AP/PA ONLY EXAMINATION: Chest 1 view HISTORY: Intractable cough COMPARISON: None available. FINDINGS: Heart size is mildly enlarged with prominence of pulmonary vasculature. There are diffuse interstitial opacities within the mid and lower lungs. No pleural effusion or pneumothorax. Degenerative changes of the thoracic spine. Osseous structures are otherwise intact. IMPRESSION: 1. Cardiomegaly with findings of pulmonary vascular congestion. 2. Interstitial opacities within the mid and lower lungs could be seen with pneumonia or pulmonary edema. Dictated by: Dictated on workstation # [id number] Dict: 11/13/22 1025 Trans: 11/13/22 1048 [id number] Interpreted by: HAMMAD FOSTER DO Electronically signed by: HAMMAD FOSTER DO 11/13/22 1048 Departure Impression Primary Impression: Pulmonary edema Qualified Codes: J81.1 - Chronic pulmonary edema Disposition: 01 HOME, SELF-CARE Condition: Stable Departure-Patient Inst. Decision time for Depature: 12:21 Referrals: TIA OROZCO APRN (PCP) Primary Care Physician [facility]/JUSTIN (Family) Primary Care Physician Patient Instructions: Heart Failure ED Add. Discharge Instructions: I have given you a prescription for 3 days of Lasix, this is a water pill. 20 mg once daily. You will need to take potassium with this medication. Prescriptions have been sent to your pharmacy. Please call and see if you can get a sooner appointment with cardiology. You will need a repeat echocardiogram. If you develop worsening shortness of breath especially with chest pain, pr essure, heaviness or tightness please return to the emergency room for reevaluation. Watch/monitor your salt intake. Do not use excess salt and watch your fluid intake. Try and avoid any carbonated beverages as they often contain excess sodium such as Coke, Pepsi, Dr. Lozano etc. Scripts Potassium Chloride (K-Tab ER) 10 Meq Tablet.er 10 MEQ PO DAILY for 3 Days, #3 TAB Prov: SUNNY FULLER MD 11/13/22 Furosemide (Lasix) 20 Mg Tablet 20 MG PO DAILY for 3 Days, #3 TAB Prov: SUNNY FULLER MD 11/13/22 Copy Copies To 1: DIONTE OSULLIVAN KATHRYN M MD Nov 13, 2022 09:49
[2022-11-13 10:02] LABS: BASOPHILS % (AUTO) 0 % (0-10); EOSINOPHILS # (AUTO) 0.3 10^3/uL (0.0-0.3); EOSINOPHILS % (AUTO) 4 % (0-10); HEMATOCRIT 35 % (35-52); HEMOGLOBIN 11.3 g/dL (11.5-16.0); LYMPHOCYTES % (AUTO) 15 % (12-44); MEAN CORPUSCULAR HEMOGLOBIN 30 pg (25-34); MEAN CORPUSCULAR HGB CONC 32 g/dL (32-36); MEAN CORPUSCULAR VOLUME 93 fL (80-99); MONOCYTES # (AUTO) 0.8 10^3/uL (0.0-1.0); MONOCYTES % (AUTO) 11 % (0-12); NEUTROPHILS # (AUTO) 4.6 10^3/uL (1.8-7.8); NEUTROPHILS % (AUTO) 69 % (42-75); PLATELET COUNT 384 10^3/uL (130-400); WHITE BLOOD COUNT 6.8 10^3/uL (4.3-11.0)
[2022-11-13 10:05] LABS: POTASSIUM 3.7 MMOL/L (3.6-5.0)
[2022-11-13 10:06] LABS: CALCIUM 8.5 MG/DL (8.5-10.1)
[2022-11-13 10:11] LABS: CREATININE SERUM 1.19 MG/DL (0.60-1.30)
--- NOTE | 2022-11-13 10:28 | Diagnostic Imaging Report ---
EXAMINATION: Chest 1 view HISTORY: Intractable cough COMPARISON: None available. FINDINGS: Heart size is mildly enlarged with prominence of pulmonary vasculature. There are diffuse interstitial opacities within the mid and lower lungs. No pleural effusion or pneumothorax. Degenerative changes of the thoracic spine. Osseous structures are otherwise intact. IMPRESSION: 1. Cardiomegaly with findings of pulmonary vascular congestion. 2. Interstitial opacities within the mid and lower lungs could be seen with pneumonia or pulmonary edema. Dictated by: Dictated on workstation # [id number]
[2022-11-13] MEDS ORDERED: FUROSEMIDE 40 MG/4 ML INJ (LASIX) IVP ONE (11:45)
[2022-11-13] MEDS ORDERED: FURO-125 PO (12:23)
[2022-11-13] MEDS ORDERED: POTA10TA PO (12:23)
[2022-11-13 12:30] VITALS: BP 136/98
== END 2022-11-13 12:35 | disposition home or self-care (01) ==
LOC: EDUNIT# 09:01 → ER 09:05
DX: J81.1 Chronic pulmonary edema (principal)
CPT/HCPCS: 36415; 71045; 80048; 83880; 85025

== ENCOUNTER → 2022-11-19 | Outpatient (CLI) | payer BC ==
[~2022-11-19] MED LIST changes: +FURO-125 PO; +GADOTERATE 0.5 MMOL/ML (CLARISCAN) 20 ML VIAL IV ONE; +POTA10TA PO
--- NOTE | 2022-11-19 09:37 | Diagnostic Imaging Report ---
EXAMINATION: MRI of the abdomen with and without contrast. TECHNIQUE: Multiplanar, multisequence MR images of the abdomen were obtained with and without intravenous contrast. HISTORY: COMPLEX RENAL CYST COMPARISON: None available. FINDINGS: Liver: The liver is normal in signal and smooth in contour. There is no focal hepatic mass. The portal and hepatic veins are patent. Gallbladder and Bile Ducts: There is no intrahepatic or extrahepatic bile duct dilation. There are no filling defects in the gallbladder or common bile duct. Pancreas: The pancreas is normal in volume, signal intensity and enhancement. There is no dilation of the main pancreatic duct. Kidneys: There is no hydronephrosis. There is a lobulated right renal cystic lesion measuring 2.5 cm which demonstrates no suspicious solid or enhancing component. Additional subcentimeter right renal cysts are also present. Adrenal glands: There is no adrenal gland nodule or thickening. Spleen: The spleen is normal in size without focal lesion. Lymph Nodes: There is no suspicious lymphadenopathy. Other: There is no ascites. IMPRESSION: 1. Simple right renal cysts measuring up to 2.5 cm. Bosniak category 1. These require no follow-up. 2. Otherwise unremarkable abdominal MRI. Dictated by: Dictated on workstation # [id number]
== END ==
LOC: RAD 07:19
PROVIDERS: ATTEND Internal Medicine Nephrology
DX: N28.1 Cyst of kidney, acquired (principal); I12.9 Hypertensive chronic kidney disease with stage 1 through stage 4 chronic kidney disease, or unspecified chronic kidney disease; N18.31 Chronic kidney disease, stage 3a; E83.9 Disorder of mineral metabolism, unspecified
CPT/HCPCS: 74183